=== PATIENT | male | born 1965 | race Caucasian/White ===

== ENCOUNTER 2018-04-02 09:14 | Inpatient (IN) ==
--- NOTE | 2018-04-01 22:10 | Discharge Summary ---
<Sandip Matson - Last Filed: 04/02/18 09:36> Orders not resulted at time of discharge: Pending orders 04/02/18 00:01 XR knee RT limited 1-2V [XR] Routine H/H [Hemoglobin and Hematocrit] [HEME] Routine 04/02/18 09:20 US anesthesia pain block [US] Routine Date of Encounter: 04/02/18 - Discharge Diagnosis (1) Arthritis of knee, right Priority: Primary Status: Acute (2) DVT prophylaxis Priority: Secondary Status: Chronic (3) Hyperglycemia Priority: Secondary Status: Chronic (4) Status post total knee replacement, right Priority: Primary Status: Acute (5) Alcohol abuse Priority: Secondary Status: Chronic (6) Hepatitis C Priority: Secondary Status: Chronic Qualifiers: Viral hepatitis chronicity: chronic Hepatic coma status: without hepatic coma Qualified Code(s): B18.2 - Chronic viral hepatitis C (7) Hypertension Priority: Secondary Status: Chronic Qualifiers: Hypertension type: essential hypertension Qualified Code(s): I10 - Essential (primary) hypertension (8) Liver cirrhosis Priority: Secondary Status: Chronic Qualifiers: Hepatic cirrhosis type: unspecified hepatic cirrhosis Ascites presence: unspecified Qualified Code(s): K74.60 - Unspecified cirrhosis of liver (9) Tobacco abuse Priority: Secondary Status: Chronic - Hospital Course Hospital course: Mr. Cardenas is a 52 year old male - Time Spent with Patient Total time spent providing and/or coordinating discharge services: - Discharge Medications Home Medications: Alendronate Sodium [Fosamax] 70 mg PO QWEEK 04/02/18 [History] Diclofenac Sodium [Voltaren] 100 gm TP QID 04/02/18 [History] Ergocalciferol (VITAMIN D2) [Vitamin D2] 50,000 unit PO QMONTH 04/02/18 [History ] Ergocalciferol (VITAMIN D2) [Vitamin D] 400 unit PO DAILY 04/02/18 [History] Gabapentin [Neurontin] 300 mg PO TID 04/02/18 [History] Hydroxychloroquine [Plaquenuil] 200 mg PO BID 04/02/18 [History] Insulin Glargine,Hum.rec.anlog [Basaglar Kwikpen U-100] 20 unit SQ DAILY [History] Sulfasalazine [Azulfidine] 1,000 mg PO BID 04/02/18 [History] Triamcinolone Acet 0.1% CRM [Kenalog] 453.6 gm TP BID 04/02/18 [History] hydroCHLOROthiazide [Hydrochlorothiazide] 12.5 mg PO DAILY 04/02/18 [History] Allergies/Adverse Reactions: 3 Allergy/AdvReac Type Severity Reaction Status Date / Time No Known Allergies Allergy Verified 07/14/15 10:55 Primary care physician: Renita Dillard CNP - Patient Status Disposition: Home, Self-Care Condition: Good - Discharge Instructions Instructions: Total Knee Replacement (DC) Follow Up With: Renita Dillard CNP [Primary Care Provider] - Kym Juan PAC [Physician Set And Exhibit Designer] - 04/10/18 2:30 am ([place]) <Kaylee Gamino - Last Filed: 04/03/18 16:45> Date of Encounter: 04/03/18 Time of Encounter: 16:37 - Discharge Diagnosis (1) Arthritis of knee, right Priority: Primary Status: Acute (2) Status post total knee replacement, right Priority: Primary Status: Acute (3) Hepatitis C Priority: Secondary Status: Chronic Qualifiers: Viral hepatitis chronicity: chronic Hepatic coma status: without hepatic coma Qualified Code(s): B18.2 - Chronic viral hepatitis C (4) Hypertension Priority: Secondary Status: Chronic Qualifiers: Hypertension type: essential hypertension Qualified Code(s): I10 - Essential (primary) hypertension (5) Alcohol abuse Priority: Secondary Status: Chronic (6) Liver cirrhosis Priority: Secondary Status: Chronic Qualifiers: Hepatic cirrhosis type: unspecified hepatic cirrhosis Ascites presence: unspecified Qualified Code(s): K74.60 - Unspecified cirrhosis of liver (7) Tobacco abuse Priority: Secondary Status: Chronic - Hospital Course Hospital course: Mr. Cardenas is a 52 year old male POD#1 - s/p Right TKR 04/02 Patient seen at bedside, without complaints. A&O x 3 6 additional makenna placed to distal incision due to bleeding. Afebrile, vital signs stable. Vital Signs Temp Pulse Resp BP Pulse Ox 04/03/18 14:02 97.8 F 77 20 126/73 99 04/03/18 12:21 97.7 F 78 18 121/78 97 04/03/18 07:30 97.8 F 68 16 126/78 99 09/13/18 03:19 97.4 F L 62 18 128/65 98 04/02/18 22:18 98.4 F 73 18 153/93 98 04/02/18 18:54 98.4 F 77 16 131/91 97 Intake and Output 04/03/18 04/03/18 04/03/18 07:59 15:59 23:59 Intake Total 100 / 100 1000 / 1000 Output Total 650 / 650 450 / 450 Balance -550 / -550 550 / 550 Intake: IV Fluids 100 / 100 1000 / 1000 Lactated Ringers 1,000 ML @ 75 1000 / 1000 mls/hr IVC .[id number] [facility] Rx#: [id number] Ancef 2,000 MG In 0.9 % Sodium 100 / 100 Chloride 100 ML @ 200 mls/hr IVPB Q8HR [facility] Rx#:[id number] Output: Urine 650 / 650 450 / 450 Other: Blood Glucose* 141 111 Labs reviewed. H/H - stable, asymptomatic Abnormal Labs 04/02/18 04/02/18 04/03/18 13:55 18:56 00:45 Hgb 12.7 L 11.1 L D Hct 37.2 L 32.7 L Sodium Glucose POC Glucose 305 H 04/03/18 04/03/18 04/03/18 00:45 07:26 11:25 Hgb Hct Sodium 133 L Glucose 194 H POC Glucose 141 H 111 H Pain control: adequate Participating in PT. All questions and concerns addressed. Educated on use of incentive spirometer. Encouraged ambulation and proper hydration. Patient educated on post-operative restrictions and post-operative care. Assessment and plan: Continue with postoperative care Discharge plan: Home, discharge today. - Time Spent with Patient Total time spent providing and/or coordinating discharge services: Date of admission: 04/03 Primary care physician: Renita Dillard CNP Anticipated date of discharge: 04/03/18 - Patient Status Functional capacity at discharge: uses cane/walker Overall status at discharge: patient is progressing back to baseline - Diet and Activity Activity: as per physical therapy
--- NOTE | 2018-04-02 09:35 | History & Physical Report ---
Date of Encounter: 04/02/18 Time of Encounter: 09:34 24 Hour HP Update - Instructions Instructions: If the History and Physical is less than 30 days old and was completed prior to A.M. admission and or procedure and has NOT been updated on calendar day of procedure please complete this update prior to performing procedure. - Update Patient reports changes in Medical Condition: No Changes in examination, assessment, or condition: No Changes in Medication: No Preop tests/diagnostics Reviewed: Yes Surgery Remains Indicated: Yes Consent for Planned Operative Procedure(s) Verified: Yes - Pre-Operative Checklist Preoperative Checklist Indicated: No Prophylactic Antibiotic Ordered: Yes Is VTE Prophylaxis Indicated?: Yes
[2018-04-02] MEDS ORDERED: Ondansetron 4 MG/2 ML VIAL ONE (09:44)
--- NOTE | 2018-04-02 09:45 | Anesthesia Evaluation PreOp ---
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 04/01/18 [Rx] 3 Allergy/AdvReac Type Severity Reaction Status Date / Time No Known Allergies Allergy Verified 07/14/15 10:55 - Meds/Allergy Pre-op Review Medications Reviewed: Yes Allergies Reviewed: Yes Beta Blockers on Current Med List: No Anesthesia Results - Labs Laboratory Last Values WBC 8.0 K/mcL (4.3-11.1) 03/26/18 12:10 RBC 4.17 M/mcL (4.19-5.50) L 03/26/18 12:10 Hgb 14.4 g/dL (12.9-16.9) 03/26/18 12:10 Hct 43.4 % (37.5-50.1) 03/26/18 12:10 MCV 104.1 fL (83.0-100.0) H 03/26/18 12:10 MCH 34.5 pg (28.0-33.3) H 03/26/18 12:10 MCHC 33.2 g/dL (31.6-35.5) 03/26/18 12:10 RDW 12.4 % (11.5-14.5) 03/26/18 12:10 Plt Count 146 K/mcL (140-400) 03/26/18 12:10 MPV 11.1 fL (9.4-12.4) 03/26/18 12:10 Immature Gran % 0.2 % (0-4) 03/26/18 12:10 Seg Neutrophils % 62.9 % 03/26/18 12:10 Lymphocytes % 19.3 % 03/26/18 12:10 Monocytes % 14.1 % 03/26/18 12:10 Eosinophils % 3.0 % 03/26/18 12:10 Basophils % 0.5 % 03/26/18 12:10 Neutrophils # 5.0 K/mcL (1.6-8.9) 03/26/18 12:10 Lymphocytes # 1.6 K/mcL (0.6-4.6) 03/26/18 12:10 Monocytes # 1.1 K/mcL (0.0-1.3) 03/26/18 12:10 Eosinophils # 0.2 K/mcL (0.0-0.6) 03/26/18 12:10 Basophils # 0.0 K/mcL (0.0-0.2) 03/26/18 12:10 PT 12.1 Seconds (9.4-12.1) 03/26/18 12:10 INR 1.1 03/26/18 12:10 APTT 34.7 Seconds (26.0-36.0) 03/26/18 12:10 Sodium 134 mEq/L (136-145) L 03/26/18 12:10 Potassium 4.9 mEq/L (3.5-5.1) 03/26/18 12:10 Chloride 101 mEq/L (98-107) 03/26/18 12:10 Carbon Dioxide 26 mEq/L (23-29) 03/26/18 12:10 BUN 12 mg/dL (6-20) 03/26/18 12:10 Creatinine 0.75 mg/dL (0.70-1.30) 03/26/18 12:10 Est GFR ( Amer) > 60 (> 60) 03/26/18 12:10 Est GFR (Non-Af Amer) > 60 (> 60) 03/26/18 12:10 BUN/Creatinine Ratio 16 (6-26) 03/26/18 12:10 Est Mean Plasma Glucose 100 mg/dl 03/26/18 12:10 Hemoglobin A1c 5.1 % (-5.6) 03/26/18 12:10 Anesthesia Exam O2 Sat Height 1.75 m Height 1.75 m Weight 80.739 kg Weight 80.739 kg O2 Sat by Pulse Oximetry 94 Vital Signs/O2 Sat/Glucose, Most Recent Temp Pulse Resp BP Pulse Ox 98.2 F 83 18 142/95 94 04/02/18 09:56 04/02/18 09:56 04/02/18 09:56 04/02/18 09:56 04/02/18 09:56 Blood Glucose* 91 NPO (# of Hours): 8 - HEENT Mallampati: I Teeth: Normal Oral Opening: Greater than 3 - Cardiac Rhythm: Regular - Pulmonary Breath Sounds: bilateral Clear Respiratory Effort: Symmetrical Anesthesia Assess/Plan ASA Score: 3 Modified Barry Scale for Level of Consciousness: Cooperative, oriented, and tranquil Anesthetic Plan: General, Regional Monitoring Plan: Standard Monitors Recovery Plan: PACU Anes Supervising Prov Stmt: CHART AND MEDICATIONS REVIEWED. [facility] MED LIST NOT UPDATED Surgical History Right shoulder scope x2 09/09/09 Right total shoulder replacement 02/27/10 colonoscopy with excision of papillas 2012 Right revision Total Shoulder Replacement Reverse 09/12/15 gall bladder removed jun 2016 Right shoulder arthroscopy,lysis of adhesisons 01-04-17 Patient informed and consented. Risks, benefits, and alternatives discussed. Patient wishes to proceed.
[2018-04-02] MEDS ORDERED: Lidocaine -MPF 2% 2 ML VIAL ONE (09:57)
[2018-04-02] MEDS ORDERED: *HR* Midazolam HCl 2 MG/2 ML VIAL ONE ×2 (09:57→12:07)
[2018-04-02] MEDS ORDERED: *HR* FentaNYL (PF) 100 MCG/2 ML VIAL ONE ×2 (09:57→12:46)
[2018-04-02] MEDS ORDERED: *HR* Propofol 200 MG/20 ML VIAL IVP ONE ×2 (09:58→12:09)
[2018-04-02] MEDS ORDERED: Dexamethasone 4 MG/ML VIAL ONE ×2 (09:59→12:12)
[2018-04-02] MEDS ORDERED: Pregabalin 75 MG CAPSULE PO ONE (10:00)
[2018-04-02] MEDS ORDERED: *HR* Methadone 10 MG TABLET PO ONE (10:00)
[2018-04-02] MEDS ORDERED: Hydrocortisone Sodium Succ 100 MG/2 ML VIAL IVP ONE (10:01)
[2018-04-02] MEDS ORDERED: CeFAZolin Syr 2,000MG/20 ML 2,000 MG/20 ML SYRINGE IVPB ONE (10:02)
[2018-04-02] MEDS ORDERED: Albuterol 2.5 MG/3 ML NEBULIZER IH ONE (10:02)
[2018-04-02] MEDS ORDERED: Albuterol 2.5 MG/3 ML NEBULIZER ONE (10:07)
[2018-04-02] MEDS ORDERED: Ringers Solution, Lactated 1,000 ML IVC SCH (10:15)
[2018-04-02] MEDS ORDERED: ROPIVACAINE HCL/PF 0.5% 30 ML VIAL ONE (10:54)
[2018-04-02] MEDS ORDERED: Bupivacaine/Clonidine Syringe 1 EACH SYRINGE ONE (10:54)
[2018-04-02] MEDS ORDERED: Ethanol\\Acetic Acid\\Na Ace\\Ben 1,000 ML IRRIG.SOLN IR ONE (11:04)
[2018-04-02] MEDS ORDERED: Acetaminophen IV 1,000 MG/100 ML INFUS..BTL ONE (11:06)
[2018-04-02] MEDS ORDERED: KETAMINE HCL 50 MG/ML SYRINGE IV ONE (11:07)
--- NOTE | 2018-04-02 11:28 | Anesthesia Procedures ---
Date of Encounter: 04/02/18 Time of Encounter: Procedures: Anesthesia - Nerve Block Procedure Date: 04/02/18 Time: Pre-op Diagnosis: Right Knee Osteoarthritis Surgical Procedure: Right Robotic Total Knee Arthroplasty Checklist: Correct Patient Identifier, Correct procedure, History checked Correct side: Right Blood Thinner: No Monitor Applied: BP, Pulse Oximetry Supplemental Oxygen via Nasal Cannula (L/min): 2 Sedation: Versed (mg): 2 Sedation: Fentanyl (mcg): 100 Indication: Post Op Analgesia Pre-op Neuro Deficits: No Block Type: Femoral (30 ml 0.5% ropivacaine and 4mg decadron), Other (I-Pack 20ml .025% bupivacaine with clonidine 20mcg/ml) Catheter placed: No Sterile Technique: Yes Ultrasound used: Yes Anatomy identified: Yes Visual spread of Local: Yes Neuro Stimulation: No Blood on Needle Aspiration: No Smooth Injection of Local: Yes Pain with Injection of Local: No Prep: Chlorhexadine Needle: 22 x 50 mm Stimuplex, 21 x 100 mm Stimuplex (50mm with femerol block; 100mm with I-PACK) Local: 0.25% Bupivicaine w/Clonidine 20 mcg/cc, Ropivacaine (0.5% 30ml (femerol block)) Number of Attempts: 1 Complications: None/effective block Vitals: Please see Holding area RN notes for vital signs
[2018-04-02] MEDS ORDERED: Ketorolac 30 MG/ML VIAL ONE (12:58)
--- NOTE | 2018-04-02 13:02 | Orthopedic Operative Note ---
Date of procedure: 04/02/18 Pre-op diagnosis: Right knee arthritis Procedure: Procedure: Right robotic-assisted Total knee replacement Estimated blood loss: 200 cc Hardware: Metal and polyethylene replacement. [place] Femur: 6 Tibia: 6 TS insert: 11 Patella: 39 Exam Under anesthesia: 4 degrees hyperextension 5 degree varus as calculated by the robot full flexion and no instability Procedural Notes: Grade 4 arthritic changes patellofemoral joint, medial compartment Operative procedure: The patient was brought to the operating room and placed on the operating room table. After general anesthesia was administered the operative knee was examined. Findings were noted in the exam under anesthesia. The operative extremity was prepped and draped in sterile surgical fashion. The patient received IV antibiotics prior to skin incision. A standard midline incision was made centered over the patella. The incision was made through the skin and subcutaneous tissue. A medial parapatellar tendon approach was performed. Care was taken to preserve tissue along the medial aspect of the patella. And to protect the patella tendon. The deep MCL was released off the medial tibia. The infra patella fat pad was excised. The patella was everted and cut was made at the level of the insertion of the quadriceps and patella tendon. The patella was sized to a 39 the guide was seated and the lug holes are drilled. Knee was brought into flexion. Patient noted to have rate 4 arthritic changes medial compartment and patellofemoral joint. Steinmann pins were placed in the tibia and the femur for the tibial and femoral arrays respectively. Checkpoints were also placed in the tibia and the femur for calculation purposes. The knee including the femur and the tibial registered. Osteophytes , ACL and PCL were excised at this point. Extension and flexion were assessed with a valgus stress components were adjusted on the computer to balance the knee. Femoral cuts were made first with robotic assistance, these included the anterior cut posterior cuts chamfer cuts. Tibial cut was then performed with robotic assistance as well. Bone fragments were removed, as well as the medial and lateral meniscus. The size 6 femoral guide was seated box cut was made lug holes are drilled. The size 6 tibial tray was seated and prepared with the fin cutter. Trial reduction with the 11 TS Yusra revealed extension of 0 degree and 1 degree varus full flexion. No varus valgus instability. Trial reduction revealed excellent patella tracking. All trial components were removed all bony surfaces were irrigated. The Tibia was seated followed by the femur, The Yusra size 11 was seated and secured patella. Patient had similar findings for motion and stability. The knee was closed by the PA. The knee was then irrigated out with 2 L of pulse irrigation. The extensor mechanism was closed with #2 FiberWire suture and #2 PDS suture. The subcutaneous tissue was then irrigated and closed deep with #1 PDS suture superficially with 0 PDS suture and skin was closed with zip tie The patient was then placed in a sterile dressing and a postoperative brace extubated and transferred to recovery room in stable condition. Anesthesia: GETA Surgeon: Sandip Matson Was there an infertility medical assistant present: No Estimated blood loss (cc): 200 Condition: stable Disposition: PACU
[2018-04-02] MEDS: *HR* HYDROmorphone (PF) 1 MG/ML SYRINGE IVP PRN ×2 (13:50→13:55)
[2018-04-02] MEDS ORDERED: *HR* Promethazine 25 MG/ML VIAL IVP PRN (13:59)
[2018-04-02] MEDS ORDERED: *HR* OxyCODONE Immed Rel 5 MG TABLET PO PRN (13:59)
--- NOTE | 2018-04-02 14:11 | Anesthesia Evaluation Post Op ---
Date of Encounter: 04/02/18 Time of Encounter: 14:10 - Vital Signs Vital Signs: Vital Signs/O2 Sat/Glucose, Most Current Temp Pulse Resp BP Pulse Ox 04/02/18 14:02 98.2 F 79 16 147/92 94 04/02/18 13:52 98.2 F 84 16 146/106 94 04/02/18 13:42 98.2 F 71 14 141/89 100 04/02/18 11:51 86 144/92 97 04/02/18 11:37 82 153/98 96 04/02/18 10:53 88 14 141/87 93 04/02/18 10:34 18 142/95 94 - Lungs Lungs: Clear Ascult./Percussion - Airway Airway: Non-obstructed - Cardiovascular Regular Rate - Mental Status Mental Status: Alert & Oriented, Answers Appropriately - Pain Pain Scale: 0 - Nausea Vomiting Nausea Vomiting: Not Present - Hydration Hydration: Ice chips, Has not voided - Discharge PostOp Status: Transfer Patient to floor (denies surgical pain, states pain in right shoulder chronic in nature, medicated)
[2018-04-02 14:19] LABS: Hematocrit 37.2 % (37.5-50.1)
[2018-04-02 14:20] LABS: Hemoglobin 12.7 g/dL (12.9-16.9)
[2018-04-02] MEDS ORDERED: *HR* OxyCODONE/APAP 5/325 TABLET PO PRN (15:33)
[2018-04-02] MEDS ORDERED: Sennosides 8.6 MG TABLET PO PRN (15:33)
[2018-04-02] MEDS ORDERED: Temazepam 15 MG CAPSULE PO PRN (15:33)
[2018-04-02] MEDS ORDERED: MOM Conc 10 ML UD.LIQ PO PRN (15:33)
[2018-04-02] MEDS ORDERED: Naloxone 0.4 MG/ML INJ IVP PRN (15:33)
[2018-04-02] MEDS ORDERED: traMADol 50 MG TABLET PO PRN (15:33)
[2018-04-02] MEDS ORDERED: (Alendronate Sodium [Fosamax] 70 MG) PO SCH (15:33)
[2018-04-02] MEDS ORDERED: Ondansetron 4 MG/2 ML VIAL IVP PRN (15:33)
[2018-04-02] MEDS: *HR* OxyCODONE Immed Rel 5 MG TABLET PO PRN ×2 (15:52→21:17)
[2018-04-02] MEDS ORDERED: *HR* Enoxaparin 30 MG/0.3 ML SYRINGE SQ SCH (18:00)
[2018-04-02] MEDS: Gabapentin 300 MG CAPSULE PO SCH ×2 (18:12→21:17)
[2018-04-02] MEDS: Ibuprofen 800 MG TABLET PO SCH ×2 (18:12→21:18)
[2018-04-02] MEDS: *HR* Enoxaparin 30 MG/0.3 ML SYRINGE SQ SCH (18:18)
[2018-04-02] MEDS: Ringers Solution, Lactated 1,000 ML IVC SCH (18:25)
[2018-04-02] MEDS: sulfaSALAzine 500 MG TABLET PO SCH (21:24)
[2018-04-02] MEDS ORDERED: *HR* Dextrose 50 % in Water (Syg) 50 ML SYRINGE IVP PRN (21:28)
[2018-04-02] MEDS ORDERED: Dextrose Gel 15 GM/37.5 ML TUBE PO PRN ×2 (21:28)
[2018-04-02] MEDS ORDERED: D5% in Water 1,000 ML IVC PRN (21:28)
[2018-04-02] MEDS ORDERED: Insulin DETEMIR 100 UNIT/ML X5UNITS SQ SCH (21:45)
[2018-04-02] MEDS: Insulin LISPRO 300 UNITS/3 ML VIAL SQ SCH (23:08)
[2018-04-02] MEDS: Insulin DETEMIR 100 UNIT/ML X5UNITS SQ SCH (23:10)
[2018-04-02] MEDS: Triamcinolone Acet 0.1% CRM 15 GM TUBE TP SCH (23:11)
[2018-04-02] MEDS: Nicotine 21 MG PATCH.TD24 TD SCH (23:11)
[2018-04-02] MEDS: Permethrin CRM 60 GM TUBE TP SCH (23:12)
[2018-04-03] MEDS: *HR* OxyCODONE Immed Rel 5 MG TABLET PO PRN ×6 (01:24→22:49)
[2018-04-03 01:38] LABS: Hematocrit 32.7 % (37.5-50.1)
[2018-04-03 01:39] LABS: Hemoglobin 11.1 g/dL (12.9-16.9)
[2018-04-03 01:44] LABS: BUN/Creatinine Ratio 16 (6-26); Blood Urea Nitrogen 13 mg/dL (6-20); Calcium 9.4 mg/dL (8.6-10.3); Carbon Dioxide 25 mEq/L (23-29); Chloride 101 mEq/L (98-107); Glucose 194 mg/dL (70-105); Osmolality,Calculated 281 (280-300); Potassium 4.6 mEq/L (3.5-5.1); Sodium 133 mEq/L (136-145); eGFR For Non-African Americans > 60 (> 60)
[2018-04-03] MEDS ORDERED: *HR* LORazepam 2 MG/ML VIAL IVP PRN ×3 (03:20)
[2018-04-03] MEDS: *HR* Enoxaparin 30 MG/0.3 ML SYRINGE SQ SCH ×2 (05:35→18:21)
--- NOTE | 2018-04-03 07:57 | Orthopedics Progress Note ---
Date of Encounter: 04/03/18 Time of Encounter: 07:57 - Assessment and Plan (1) Arthritis of knee, right Current Visit: No Status: Acute (2) DVT prophylaxis Current Visit: No Status: Chronic (3) Hyperglycemia Current Visit: No Status: Chronic (4) Status post total knee replacement, right Current Visit: No Status: Acute (5) Alcohol abuse Current Visit: No Status: Chronic (6) Hepatitis C Current Visit: No Status: Chronic Qualifiers: Viral hepatitis chronicity: chronic Hepatic coma status: without hepatic coma Qualified Code(s): B18.2 - Chronic viral hepatitis C (7) Hypertension Current Visit: No Status: Chronic Qualifiers: Hypertension type: essential hypertension Qualified Code(s): I10 - Essential (primary) hypertension (8) Liver cirrhosis Current Visit: No Status: Chronic Qualifiers: Hepatic cirrhosis type: unspecified hepatic cirrhosis Ascites presence: unspecified Qualified Code(s): K74.60 - Unspecified cirrhosis of liver (9) Tobacco abuse Current Visit: No Status: Chronic Subjective Interval history: Patient was seen this morning doing well without complaints. Afebrile vital signs stable. Operative extremity: Neurovascularly intact Dressing change multiple times for bleeding will have evaluated Calves nontender Assessment and plan: Continue with postoperative care Objective Vital signs: Vital Signs Temp Pulse Resp BP Pulse Ox 04/03/18 07:30 97.8 F 681 6 126/78 99 04/03/18 03:19 97.4 F L 62 18 128/65 98 04/02/18 22:18 98.4 F 73 18 153/93 98 04/02/18 18:54 98.4 F 77 16 131/91 97 04/02/18 15:55 97.7 F 86 18 129/86 94 04/02/18 15:09 138/85 04/02/18 15:01 97.8 F 86 20 141/93 94 04/02/18 14:35 97.7 F 80 14 154/106 95 04/02/18 14:22 98.2 F 80 16 142/97 94 04/02/18 14:12 98.1 F 79 16 148/95 94 04/02/18 14:02 98.2 F 79 16 147/92 94 04/02/18 13:52 98.2 F 84 16 146/106 94 04/02/18 13:42 98.2 F 71 14 141/89 100 09/12/18 11:51 86 144/92 97 04/02/18 11:37 82 153/98 96 04/02/18 10:53 88 14 141/87 93 04/02/18 10:34 18 142/95 94 04/02/18 09:56 98.2 F 83 18 142/95 94 Intake and Output 04/02/18 04/02/18 04/03/18 15:59 23:59 07:59 Intake Total 20 / 20 220 / 220 100 / 100 Output Total 300 / 300 125 / 125 650 / 650 Balance -280 / -280 95 / 95 -550 / -550 Intake: IV Fluids 20 / 20 100 / 100 100 / 100 Ancef Syringe 2,000 MG/20 ML 2, 20 / 20 000 mg In 20 ml @ 200 mls/hr IVPB PREOP ONE Rx#:[id number] Ancef 2,000 MG In 0.9 % Sodium 100 / 100 100 / 100 Chloride 100 ML @ 200 mls/hr IVPB Q8HR [facility] Rx#:[id number] Oral 120 / 120 Output: Urine 100 / 100 125 / 125 650 / 650 Estimated Blood Loss 200 / 200 Other: Meal Dinner Percent of Meal Consumed 100% Weight 80.739 kg Blood Glucose* 91 305 141 - Labs CBC & BMP: 04/03/18 00:45 04/03/18 00:45 Labs: Abnormal lab results Hgb 11.1 g/dL (12.9-16.9) L D 04/03/18 00:45 Hct 32.7 % (37.5-50.1) L 04/03/18 00:45 Sodium 133 mEq/L (136-145) L 04/03/18 00:45 Glucose 194 mg/dL (70-105) H 04/03/18 00:45 POC Glucose 305 mg/dL (70-99) H 04/02/18 18:56 Consult Discharge Plan - Plan Referrals: Renita Dillard, PUBLICITY MANAGER [Primary Care Provider] -
[2018-04-03] MEDS: Nicotine 21 MG PATCH.TD24 TD SCH (09:24)
[2018-04-03] MEDS: hydroCHLOROthiazide 25 MG TABLET PO SCH (09:29)
[2018-04-03] MEDS: Cholecalciferol (D-3) 1,000 UNIT TABLET PO SCH (09:29)
[2018-04-03] MEDS: sulfaSALAzine 500 MG TABLET PO SCH ×2 (09:29→21:43)
[2018-04-03] MEDS: Ibuprofen 800 MG TABLET PO SCH ×3 (09:30→21:43)
[2018-04-03] MEDS: Gabapentin 300 MG CAPSULE PO SCH ×3 (09:30→21:43)
[2018-04-03] MEDS: Insulin LISPRO 300 UNITS/3 ML VIAL SQ SCH ×4 (09:31→21:26)
[2018-04-03] MEDS: Triamcinolone Acet 0.1% CRM 15 GM TUBE TP SCH ×2 (09:32→21:26)
[2018-04-03] MEDS: Permethrin CRM 60 GM TUBE TP SCH (17:53)
[2018-04-03] MEDS: Ringers Solution, Lactated 1,000 ML IVC SCH (21:28)
[2018-04-03] MEDS: Insulin DETEMIR 100 UNIT/ML X5UNITS SQ SCH (21:42)
[2018-04-04 01:25] LABS: Hematocrit 27.1 % (37.5-50.1)
[2018-04-04 01:40] LABS: BUN/Creatinine Ratio 21 (6-26); Blood Urea Nitrogen 18 mg/dL (6-20); Carbon Dioxide 27 mEq/L (23-29); Chloride 102 mEq/L (98-107); Glucose 156 mg/dL (70-105); Osmolality,Calculated 285 (280-300); Sodium 135 mEq/L (136-145); eGFR For Non-African Americans > 60 (> 60)
[2018-04-04] MEDS: *HR* OxyCODONE Immed Rel 5 MG TABLET PO PRN ×3 (03:10→12:56)
[2018-04-04] MEDS: *HR* Enoxaparin 30 MG/0.3 ML SYRINGE SQ SCH (06:49)
[2018-04-04 07:22] VITALS: BP 134/87
[2018-04-04] MEDS: Ringers Solution, Lactated 1,000 ML IVC SCH (07:45)
[2018-04-04] MEDS: Nicotine 21 MG PATCH.TD24 TD SCH (07:45)
[2018-04-04] MEDS: Cholecalciferol (D-3) 1,000 UNIT TABLET PO SCH (07:45)
[2018-04-04] MEDS: Ibuprofen 800 MG TABLET PO SCH (07:45)
[2018-04-04] MEDS: Gabapentin 300 MG CAPSULE PO SCH (07:45)
[2018-04-04] MEDS: hydroCHLOROthiazide 25 MG TABLET PO SCH (07:45)
[2018-04-04] MEDS: Insulin LISPRO 300 UNITS/3 ML VIAL SQ SCH ×2 (08:14→12:13)
--- NOTE | 2018-04-04 09:01 | Orthopedics Progress Note ---
Date of Encounter: 04/04/18 Time of Encounter: 09:01 - Assessment and Plan (1) Arthritis of knee, right Current Visit: No Status: Acute (2) DVT prophylaxis Current Visit: No Status: Chronic (3) Hyperglycemia Current Visit: No Status: Chronic (4) Status post total knee replacement, right Current Visit: No Status: Acute (5) Alcohol abuse Current Visit: No Status: Chronic (6) Hepatitis C Current Visit: No Status: Chronic Qualifiers: Viral hepatitis chronicity: chronic Hepatic coma status: without hepatic coma Qualified Code(s): B18.2 - Chronic viral hepatitis C (7) Hypertension Current Visit: No Status: Chronic Qualifiers: Hypertension type: essential hypertension Qualified Code(s): I10 - Essential (primary) hypertension (8) Liver cirrhosis Current Visit: No Status: Chronic Qualifiers: Hepatic cirrhosis type: unspecified hepatic cirrhosis Ascites presence: unspecified Qualified Code(s): K74.60 - Unspecified cirrhosis of liver (9) Tobacco abuse Current Visit: No Status: Chronic (10) Acute blood loss anemia Current Visit: Yes Status: Acute Subjective Interval history: Patient was seen this morning doing well without complaints. Afebrile vital signs stable. Operative extremity: Neurovascularly intact Dressing change multiple times for bleeding will have evaluated Calves nontender Assessment and plan: Continue with postoperative care Hemoglobin 9.0 plan for discharge today Objective Vital signs: Vital Signs Temp Pulse Resp BP Pulse Ox 04/04/18 06:30 97.8 F 87 16 134/87 98 04/04/18 04:19 97.6 F 82 17 137/83 96 04/03/18 23:44 97.9 F 71 17 124/75 98 04/03/18 21:56 100 04/03/18 21:11 98.0 F 67 18 110/69 100 04/03/18 14:02 97.8 F 77 20 126/73 99 04/03/18 12:21 97.7 F 78 18 121/78 97 Intake and Output 04/03/18 04/04/18 04/04/18 23:59 07:59 15:59 Intake Total 0 / 0 300 / 300 Output Total 0 / 0 600 / 600 Balance 0 / 0 -300 / -300 Intake: Oral 0 / 0 300 / 300 Output: Urine 0 / 0 600 / 600 Other: # Voids 1 Blood Glucose* 181 94 - Labs CBC & BMP: 04/04/18 00:50 04/04/18 00:50 Labs: Abnormal lab results Hgb 9.0 g/dL (12.9-16.9) L D 04/04/18 00:50 Hct 27.1 % (37.5-50.1) L 04/04/18 00:50 Sodium 135 mEq/L (136-145) L 04/04/18 00:50 Glucose 156 mg/dL (70-105) H 04/04/18 00:50 POC Glucose 181 mg/dL (70-99) H 04/03/18 20:02 Consult Discharge Plan - Plan Instructions: Total Knee Replacement (DC) Referrals: Kym Juan PAC [Physician Product Communications Manager] - 04/10/18 2:30 pm ([place]) Renita Dillard, FRUIT TRIMMER [Primary Care Provider] -
[2018-04-04] MEDS: Triamcinolone Acet 0.1% CRM 15 GM TUBE TP SCH (10:44)
[2018-04-04] MEDS ORDERED: Ketorolac 30 MG/ML VIAL IVP PRN (13:56)
== END 2018-04-04 15:12 | disposition home or self-care (01) | DRG 302 ==
LOC: SAMDAY 09:14 → 3NENU 14:57
PROVIDERS: ADMIT Orthopaedic Surgery; ATTEND Orthopaedic Surgery

== ENCOUNTER 2020-04-07 12:53 | Observation (INO) ==
[2020-04-07] MEDS ORDERED: Gabapentin 300 MG CAPSULE PO ONE (13:47)
[2020-04-07] MEDS ORDERED: Celecoxib 200 MG CAPSULE PO ONE (13:47)
[2020-04-07] MEDS ORDERED: Famotidine 20 MG/2 ML VIAL IVP ONE (13:47)
[2020-04-07] MEDS ORDERED: Acetaminophen IV 1,000 MG/100 ML INFUS..BTL IVPB ONE (13:47)
[2020-04-07] MEDS ORDERED: *HR* OxyCODONE ER (12 HR) 10 MG TABLET PO ONE (13:47)
[2020-04-07] MEDS ORDERED: *HR* Promethazine 25 MG/ML VIAL IVP PRN ×2 (13:56→17:50)
[2020-04-07] MEDS ORDERED: *HR* OxyCODONE Immed Rel 5 MG TABLET PO PRN (13:56)
[2020-04-07] MEDS ORDERED: Albuterol 2.5 MG/3 ML NEBULIZER IH PRN (13:56)
[2020-04-07] MEDS ORDERED: *HR* HYDROmorphone PF 0.5 MG/0.5 ML SYRINGE IVP PRN (13:56)
[2020-04-07] MEDS ORDERED: Ondansetron 4 MG/2 ML VIAL IVP ONE (13:56)
[2020-04-07] MEDS ORDERED: CeFAZolin Syr 2,000MG/20 ML 2,000 MG/20 ML SYRINGE IVPB ONE (14:11)
[2020-04-07] MEDS ORDERED: Ringers Solution, Lactated 1,000 ML IVC SCH ×2 (14:15→17:50)
[2020-04-07] MEDS ORDERED: Ropivacaine/PF 0.5% 30 ML VIAL ONE (14:27)
[2020-04-07] MEDS ORDERED: *HR* FentaNYL (PF) 100 MCG/2 ML VIAL ONE (14:28)
[2020-04-07] MEDS ORDERED: *HR* Midazolam HCl 2 MG/2 ML VIAL ONE (14:28)
[2020-04-07] MEDS ORDERED: Dexamethasone 4 MG/ML VIAL ONE ×2 (14:28→14:49)
[2020-04-07] MEDS ORDERED: Ondansetron 4 MG/2 ML VIAL ONE (14:49)
[2020-04-07] MEDS ORDERED: Lidocaine -MPF 2% 2 ML VIAL ONE (14:49)
[2020-04-07] MEDS ORDERED: *HR* Propofol 200 MG/20 ML VIAL IVP ONE (14:49)
[2020-04-07] MEDS ORDERED: Ethanol\\Acetic Acid\\Na Ace\\Ben 1,000 ML IRRIG.SOLN IR ONE (15:10)
[2020-04-07] MEDS ORDERED: Vancomycin 1,000 MG VIAL ONE (15:10)
[2020-04-07] MEDS ORDERED: Total Joint Mixture (50 ml) INTRAART ONE (16:00)
[2020-04-07 17:46] LABS: Hematocrit 34.1 % (37.5-50.1); Hemoglobin 11.5 g/dL (12.9-16.9)
[2020-04-07] MEDS ORDERED: D5% in Water 1,000 ML IVC PRN (17:50)
[2020-04-07] MEDS ORDERED: Naloxone 0.4 MG/ML INJ IVP PRN (17:50)
[2020-04-07] MEDS ORDERED: *HR* Dextrose 50 % in Water (Vial) 50 ML VIAL IVP PRN (17:50)
[2020-04-07] MEDS ORDERED: MOM Conc 10 ML UD.LIQ PO PRN (17:50)
[2020-04-07] MEDS ORDERED: Dextrose Gel 15 GM/37.5 ML TUBE PO PRN ×2 (17:50)
[2020-04-07] MEDS ORDERED: Sennosides 8.6 MG TABLET PO PRN (17:50)
[2020-04-07] MEDS ORDERED: Ondansetron 4 MG/2 ML VIAL IVP PRN (17:50)
[2020-04-07] MEDS: Insulin LISPRO 300 UNITS/3 ML VIAL SQ SCH ×2 (20:04→22:00)
[2020-04-07] MEDS: Ascorbic Acid 500 MG TABLET PO SCH (20:04)
[2020-04-07] MEDS: *HR* OxyCODONE Immed Rel 5 MG TABLET PO PRN (21:09)
[2020-04-07] MEDS: Insulin DETEMIR 100 UNIT/ML X5UNITS SQ SCH (22:01)
[2020-04-07] MEDS: HYDROcodone BIT/Homatropine 5 MG TABLET PO PRN (23:29)
[2020-04-08] MEDS: CeFAZolin 2 GM/120 ML BAG IVPB SCH ×2 (00:57→09:51)
[2020-04-08] MEDS: *HR* OxyCODONE Immed Rel 5 MG TABLET PO PRN ×5 (01:07→19:38)
[2020-04-08 02:49] LABS: Hematocrit 32.9 % (37.5-50.1); Hemoglobin 11.1 g/dL (12.9-16.9); Immature Granulocytes % 0.2 % (0-4); Lymphocytes # 0.3 K/mcL (0.6-4.6); Lymphocytes % 4.1 %; Mean Corpuscular HGB Conc 33.7 g/dL (31.6-35.5); Mean Corpuscular Volume 103.8 fL (83.0-100.0); Monocytes # 0.3 K/mcL (0.0-1.3); Monocytes % 3.5 %; Neutrophils # 7.4 K/mcL (1.6-8.9); Platelet Count 139 K/mcL (140-400); Red Blood Count 3.17 M/mcL (4.19-5.50); Red Cell Distribution Width 13.1 % (11.5-14.5); Segmented Neutrophils % 92.2 %
[2020-04-08 03:13] LABS: BUN/Creatinine Ratio 13 (6-26); Blood Urea Nitrogen 11 mg/dL (6-20); Calcium 9.1 mg/dL (8.6-10.3); Carbon Dioxide 22 mEq/L (23-29); Chloride 99 mEq/L (98-107); Glucose 149 mg/dL (70-105); Osmolality,Calculated 270 (280-300); Potassium 4.7 mEq/L (3.5-5.1); Sodium 129 mEq/L (136-145); eGFR For African Americans > 60 (> 60); eGFR For Non-African Americans > 60 (> 60)
[2020-04-08] MEDS: HYDROcodone BIT/Homatropine 5 MG TABLET PO PRN ×4 (03:51→21:37)
[2020-04-08] MEDS: Cholecalciferol (D-3) 1,000 UNIT (25MCG) TABLET PO SCH (08:36)
[2020-04-08] MEDS: Ascorbic Acid 500 MG TABLET PO SCH ×2 (08:37→17:01)
[2020-04-08] MEDS: hydroCHLOROthiazide 25 MG TABLET PO SCH (08:37)
[2020-04-08] MEDS: Multivit/Ca/Min/Fe/FA 1 TAB TABLET PO SCH (08:37)
[2020-04-08] MEDS: (Tofacitinib Citrate [Xeljanz Xr] 11 MG) PO SCH (08:38)
[2020-04-08] MEDS: Insulin LISPRO 300 UNITS/3 ML VIAL SQ SCH ×4 (08:40→22:30)
[2020-04-08] MEDS: Aspirin Enteric Coated 81 MG Tablet PO SCH (14:32)
[2020-04-08] MEDS: Insulin DETEMIR 100 UNIT/ML X5UNITS SQ SCH (22:27)
[2020-04-09] MEDS: *HR* OxyCODONE Immed Rel 5 MG TABLET PO PRN ×4 (00:01→14:40)
[2020-04-09] MEDS: HYDROcodone BIT/Homatropine 5 MG TABLET PO PRN ×2 (02:18→12:27)
[2020-04-09] MEDS: Insulin LISPRO 300 UNITS/3 ML VIAL SQ SCH ×2 (08:49→12:27)
[2020-04-09] MEDS: Aspirin Enteric Coated 81 MG Tablet PO SCH (09:22)
[2020-04-09] MEDS: (Tofacitinib Citrate [Xeljanz Xr] 11 MG) PO SCH (09:22)
[2020-04-09] MEDS: Ascorbic Acid 500 MG TABLET PO SCH (09:22)
[2020-04-09] MEDS: Multivit/Ca/Min/Fe/FA 1 TAB TABLET PO SCH (09:22)
[2020-04-09] MEDS: Cholecalciferol (D-3) 1,000 UNIT (25MCG) TABLET PO SCH (09:22)
[2020-04-09] MEDS: hydroCHLOROthiazide 25 MG TABLET PO SCH (09:22)
[2020-04-09 10:39] LABS: Basophils % 0.1 %; Eosinophils # 0.1 K/mcL (0.0-0.6); Eosinophils % 1.1 %; Hematocrit 27.2 % (37.5-50.1); Immature Granulocytes % 0.4 % (0-4); Lymphocytes # 1.9 K/mcL (0.6-4.6); Lymphocytes % 22.7 %; Mean Corpuscular Volume 106.3 fL (83.0-100.0); Mean Platelet Volume 10.3 fL (9.4-12.4); Monocytes # 0.8 K/mcL (0.0-1.3); Monocytes % 10.2 %; Neutrophils # 5.4 K/mcL (1.6-8.9); Platelet Count 122 K/mcL (140-400); Red Blood Count 2.56 M/mcL (4.19-5.50); Red Cell Distribution Width 13.3 % (11.5-14.5); Segmented Neutrophils % 65.5 %; White Blood Count 8.2 K/mcL (4.3-11.1)
[2020-04-09 10:41] LABS: Hemoglobin 8.7 g/dL (12.9-16.9)
[2020-04-09 11:32] LABS: BUN/Creatinine Ratio 20 (6-26); Blood Urea Nitrogen 20 mg/dL (6-20); Calcium 8.8 mg/dL (8.6-10.3); Carbon Dioxide 23 mEq/L (23-29); Chloride 98 mEq/L (98-107); Glucose 199 mg/dL (70-105); Osmolality,Calculated 280 (280-300); Potassium 3.5 mEq/L (3.5-5.1); Sodium 131 mEq/L (136-145); eGFR For African Americans > 60 (> 60); eGFR For Non-African Americans > 60 (> 60)
[2020-04-09 11:57] VITALS: BP 112/88
== END 2020-04-09 15:30 | disposition home or self-care (01) ==
LOC: 3NENU 12:53 → SAMDAY 12:53 → 3NENU 17:39
PROVIDERS: ADMIT Orthopaedic Surgery; ATTEND Orthopaedic Surgery

== ENCOUNTER 2020-08-15 23:52 | Inpatient (IN) ==
[2020-08-16] MEDS ORDERED: 0.9 % Sodium Chloride 1,000 ML ONE (00:04)
[2020-08-16] MEDS ORDERED: Naloxone 0.4 MG/ML INJ IVP PRN (02:24)
[2020-08-16] MEDS ORDERED: Ondansetron 4 MG/2 ML VIAL IVP PRN (02:24)
[2020-08-16] MEDS ORDERED: *HR* Dextrose 50 % in Water (Vial) 50 ML VIAL IVP PRN (02:44)
[2020-08-16] MEDS ORDERED: D5% in Water 1,000 ML IVC PRN (02:44)
[2020-08-16] MEDS ORDERED: Dextrose Gel 15 GM/37.5 ML TUBE PO PRN ×2 (02:44)
[2020-08-16] MEDS ORDERED: *HR* LORazepam 2 MG/ML VIAL IVP ONE (02:44)
[2020-08-16] MEDS: Nicotine 21 MG PATCH.TD24 TD SCH (02:56)
[2020-08-16] MEDS ORDERED: *HR* LORazepam 2 MG/ML VIAL IVP PRN ×3 (04:22)
[2020-08-16 05:46] LABS: BUN/Creatinine Ratio 21 (6-26); Blood Urea Nitrogen 12 mg/dL (6-20); Calcium 9.1 mg/dL (8.6-10.3); Carbon Dioxide 22 mEq/L (23-29); Chloride 86 mEq/L (98-107); Glucose 306 mg/dL (70-105); Osmolality,Calculated 265 (280-300); Potassium 5.2 mEq/L (3.5-5.1); Sodium 122 mEq/L (136-145); eGFR For African Americans > 60 (> 60); eGFR For Non-African Americans > 60 (> 60)
[2020-08-16] MEDS ORDERED: Insulin LISPRO 300 UNITS/3 ML VIAL SUBQ SCH (06:00)
[2020-08-16] MEDS ORDERED: 0.9 % Sodium Chloride 1,000 ML IVC SCH (06:00)
[2020-08-16 07:33] LABS: Basophils % 0.1 %; Hematocrit 37.4 % (37.5-50.1); Hemoglobin 12.7 g/dL (12.9-16.9); Immature Granulocytes % 0.7 % (0-4); Lymphocytes # 0.6 K/mcL (0.6-4.6); Lymphocytes % 5.7 %; Mean Corpuscular Hemoglobin 32.9 pg (28.0-33.3); Mean Corpuscular Volume 96.9 fL (83.0-100.0); Mean Platelet Volume 10.4 fL (9.4-12.4); Monocytes # 0.7 K/mcL (0.0-1.3); Monocytes % 6.9 %; Neutrophils # 8.6 K/mcL (1.6-8.9); Platelet Count 207 K/mcL (140-400); Red Blood Count 3.86 M/mcL (4.19-5.50); Red Cell Distribution Width 13.2 % (11.5-14.5); Segmented Neutrophils % 86.6 %; White Blood Count 9.9 K/mcL (4.3-11.1)
[2020-08-16 07:45] LABS: Alanine Aminotransferase 26 Units/L (7-52); Albumin 4.3 g/dL (3.5-5.7); Albumin/Globulin Ratio 1.2 (1.1-2.2); Alkaline Phosphatase 81 Units/L (34-104); Aspartate Amino Transferase 28 Units/L (13-39); BUN/Creatinine Ratio 18 (6-26); Bilirubin,Total 0.7 mg/dL (0.3-1.0); Blood Urea Nitrogen 12 mg/dL (6-20); Calcium 9.5 mg/dL (8.6-10.3); Carbon Dioxide 22 mEq/L (23-29); Chloride 85 mEq/L (98-107); Globulin 3.5 g/dL (2.4-3.5); Glucose 300 mg/dL (70-105); Osmolality,Calculated 267 (280-300); Sodium 123 mEq/L (136-145); Total Protein 7.8 g/dL (6.4-8.9); eGFR For African Americans > 60 (> 60); eGFR For Non-African Americans > 60 (> 60)
[2020-08-16] MEDS ORDERED: Insulin DETEMIR 100 UNIT/ML X5UNITS SUBQ ONE (10:00)
[2020-08-16] MEDS: Thiamine (B-1) 200 MG in 0.9 % Sodium Chloride 50 ML IVPB SCH (10:43)
[2020-08-16] MEDS: 0.9 % Sodium Chloride 1,000 ML IVC SCH ×2 (10:45→18:38)
[2020-08-16 11:14] LABS: BUN/Creatinine Ratio 18 (6-26); Blood Urea Nitrogen 12 mg/dL (6-20); Calcium 9.5 mg/dL (8.6-10.3); Carbon Dioxide 24 mEq/L (23-29); Chloride 88 mEq/L (98-107); Glucose 234 mg/dL (70-105); Osmolality,Calculated 269 (280-300); Potassium 4.5 mEq/L (3.5-5.1); Sodium 126 mEq/L (136-145); eGFR For African Americans > 60 (> 60); eGFR For Non-African Americans > 60 (> 60)
[2020-08-16] MEDS: Pantoprazole 40 MG VIAL IVP SCH (14:03)
[2020-08-16] MEDS: Insulin LISPRO 300 UNITS/3 ML VIAL SUBQ SCH ×4 (14:14→23:12)
[2020-08-16] MEDS: Insulin DETEMIR 100 UNIT/ML X5UNITS SUBQ SCH (19:46)
[2020-08-16 21:18] LABS: BUN/Creatinine Ratio 21 (6-26); Blood Urea Nitrogen 15 mg/dL (6-20); Calcium 9.4 mg/dL (8.6-10.3); Carbon Dioxide 28 mEq/L (23-29); Chloride 93 mEq/L (98-107); Glucose 142 mg/dL (70-105); Osmolality,Calculated 273 (280-300); Potassium 4.1 mEq/L (3.5-5.1); Sodium 130 mEq/L (136-145); eGFR For African Americans > 60 (> 60); eGFR For Non-African Americans > 60 (> 60)
[2020-08-16] MEDS ORDERED: D5% in Water 1,000 ML IVC SCH (22:15)
[2020-08-17 01:09] LABS: Bacteria,Urine Few per hpf (None-Few); Bilirubin,Urine Negative (Negative); Blood,Urine Trace (Negative); Clarity,Urine Clear (Clear); Color,Urine Yellow (Yellow); Glucose,Urine (UA) >=1000 mg/dL (Normal); Ketones,Urine 40 mg/dL (Negative); Leukocyte Esterase,Urine Negative (Negative); Mucus,Urine Few per lpf (None-Few); Nitrite,Urine Negative (Negative); Protein,Urine Trace mg/dL (Neg-Trace); Specific Gravity,Urine 1.029 (1.010-1.025); Squamous Epithelial Cell,Urine Few per hpf (None-Few); Urobilinogen,Urine Normal (Normal)
[2020-08-17] MEDS: Insulin LISPRO 300 UNITS/3 ML VIAL SUBQ SCH ×5 (04:06→23:34)
[2020-08-17 06:58] LABS: BUN/Creatinine Ratio 24 (6-26); Blood Urea Nitrogen 16 mg/dL (6-20); Calcium 9.4 mg/dL (8.6-10.3); Carbon Dioxide 29 mEq/L (23-29); Chloride 93 mEq/L (98-107); Glucose 142 mg/dL (70-105); Osmolality,Calculated 274 (280-300); Potassium 3.5 mEq/L (3.5-5.1); Sodium 130 mEq/L (136-145); eGFR For African Americans > 60 (> 60); eGFR For Non-African Americans > 60 (> 60)
[2020-08-17] MEDS: Nicotine 21 MG PATCH.TD24 TD SCH (08:29)
[2020-08-17] MEDS: Insulin DETEMIR 100 UNIT/ML X5UNITS SUBQ SCH ×2 (08:30→21:49)
[2020-08-17] MEDS: Thiamine (B-1) 200 MG in 0.9 % Sodium Chloride 50 ML IVPB SCH (08:30)
[2020-08-17] MEDS: Pantoprazole 40 MG VIAL IVP SCH (11:38)
[2020-08-17] MEDS ORDERED: E-Z-PAQUE (BARIUM SULF) SUSP 1 BOTTLE PO ONE (12:35)
[2020-08-17] MEDS ORDERED: E-Z-HD (BARIUM SULF) SUSPENSION PO ONE (12:35)
[2020-08-17 12:48] LABS: Basophils % 0.1 %; Hemoglobin 12.2 g/dL (12.9-16.9); Immature Granulocytes % 0.3 % (0-4); Lymphocytes # 0.9 K/mcL (0.6-4.6); Lymphocytes % 7.6 %; Mean Corpuscular Hemoglobin 32.4 pg (28.0-33.3); Mean Corpuscular Volume 98.4 fL (83.0-100.0); Mean Platelet Volume 10.2 fL (9.4-12.4); Monocytes # 1.8 K/mcL (0.0-1.3); Monocytes % 15.8 %; Neutrophils # 8.7 K/mcL (1.6-8.9); Platelet Count 203 K/mcL (140-400); Red Blood Count 3.76 M/mcL (4.19-5.50); Segmented Neutrophils % 76.2 %; White Blood Count 11.4 K/mcL (4.3-11.1)
[2020-08-17] MEDS ORDERED: Ondansetron 4 MG/2 ML VIAL IVP PRN (14:58)
[2020-08-17] MEDS ORDERED: *HR* LORazepam 2 MG/ML VIAL IVP PRN ×3 (14:58)
[2020-08-17] MEDS ORDERED: Dextrose Gel 15 GM/37.5 ML TUBE PO PRN ×2 (14:58)
[2020-08-17] MEDS ORDERED: *HR* Dextrose 50 % in Water (Vial) 50 ML VIAL IVP PRN (14:58)
[2020-08-17] MEDS ORDERED: Naloxone 0.4 MG/ML INJ IVP PRN (14:58)
[2020-08-17 16:22] LABS: BUN/Creatinine Ratio 22 (6-26); Blood Urea Nitrogen 17 mg/dL (6-20); Calcium 9.5 mg/dL (8.6-10.3); Carbon Dioxide 29 mEq/L (23-29); Chloride 92 mEq/L (98-107); Glucose 185 mg/dL (70-105); Osmolality,Calculated 274 (280-300); Potassium 3.7 mEq/L (3.5-5.1); Sodium 129 mEq/L (136-145); eGFR For African Americans > 60 (> 60); eGFR For Non-African Americans > 60 (> 60)
[2020-08-17] MEDS: *HR* Heparin 5,000 UNIT/ML VIAL SQ SCH (17:38)
[2020-08-18 02:37] LABS: Basophils % 0.2 %; Eosinophils % 0.1 %; Hematocrit 35.6 % (37.5-50.1); Hemoglobin 11.7 g/dL (12.9-16.9); Immature Granulocytes % 0.5 % (0-4); Lymphocytes # 0.7 K/mcL (0.6-4.6); Lymphocytes % 6.4 %; Mean Corpuscular HGB Conc 32.9 g/dL (31.6-35.5); Mean Corpuscular Hemoglobin 32.8 pg (28.0-33.3); Mean Corpuscular Volume 99.7 fL (83.0-100.0); Mean Platelet Volume 9.6 fL (9.4-12.4); Monocytes # 1.3 K/mcL (0.0-1.3); Monocytes % 11.9 %; Neutrophils # 8.5 K/mcL (1.6-8.9); Platelet Count 174 K/mcL (140-400); Red Blood Count 3.57 M/mcL (4.19-5.50); Red Cell Distribution Width 13.9 % (11.5-14.5); Segmented Neutrophils % 80.9 %; White Blood Count 10.6 K/mcL (4.3-11.1)
[2020-08-18 02:38] LABS: VBG Ionized Calcium 1.15 mmol/L (1.15-1.35)
[2020-08-18 02:57] LABS: Alanine Aminotransferase 19 Units/L (7-52); Albumin 3.7 g/dL (3.5-5.7); Albumin/Globulin Ratio 1.2 (1.1-2.2); Alkaline Phosphatase 69 Units/L (34-104); Aspartate Amino Transferase 20 Units/L (13-39); BUN/Creatinine Ratio 25 (6-26); Bilirubin,Total 0.7 mg/dL (0.3-1.0); Blood Urea Nitrogen 18 mg/dL (6-20); Calcium 9.3 mg/dL (8.6-10.3); Carbon Dioxide 28 mEq/L (23-29); Chloride 93 mEq/L (98-107); Globulin 3.2 g/dL (2.4-3.5); Glucose 225 mg/dL (70-105); Magnesium 1.8 mg/dL (1.6-2.6); Osmolality,Calculated 277 (280-300); Phosphorous 3.7 mg/dL (2.7-4.5); Potassium 3.9 mEq/L (3.5-5.1); Sodium 129 mEq/L (136-145); Total Protein 6.9 g/dL (6.4-8.9); eGFR For African Americans > 60 (> 60); eGFR For Non-African Americans > 60 (> 60)
[2020-08-18] MEDS: *HR* Heparin 5,000 UNIT/ML VIAL SQ SCH ×2 (06:52→17:01)
[2020-08-18] MEDS: Insulin LISPRO 300 UNITS/3 ML VIAL SUBQ SCH ×5 (08:52→22:44)
[2020-08-18] MEDS ORDERED: Thiamine (B-1) 200 MG in 0.9 % Sodium Chloride 50 ML IVPB SCH (09:00)
[2020-08-18] MEDS: Nicotine 21 MG PATCH.TD24 TD SCH (09:46)
[2020-08-18] MEDS: Insulin DETEMIR 100 UNIT/ML X5UNITS SUBQ SCH ×2 (09:46→22:40)
[2020-08-18] MEDS: Pantoprazole 40 MG VIAL IVP SCH (11:08)
[2020-08-18] MEDS ORDERED: OLANZAPINE 5 MG PO SCH (15:45)
[2020-08-19 02:20] LABS: Basophils % 0.2 %; Eosinophils % 0.1 %; Hematocrit 35.2 % (37.5-50.1); Hemoglobin 11.5 g/dL (12.9-16.9); Immature Granulocytes % 0.3 % (0-4); Lymphocytes # 0.9 K/mcL (0.6-4.6); Lymphocytes % 7.4 %; Mean Corpuscular HGB Conc 32.7 g/dL (31.6-35.5); Mean Corpuscular Hemoglobin 32.4 pg (28.0-33.3); Mean Corpuscular Volume 99.2 fL (83.0-100.0); Mean Platelet Volume 10.1 fL (9.4-12.4); Monocytes # 1.3 K/mcL (0.0-1.3); Monocytes % 11.1 %; Neutrophils # 9.7 K/mcL (1.6-8.9); Platelet Count 160 K/mcL (140-400); Red Blood Count 3.55 M/mcL (4.19-5.50); Red Cell Distribution Width 14.1 % (11.5-14.5); Segmented Neutrophils % 80.9 %; White Blood Count 11.9 K/mcL (4.3-11.1)
[2020-08-19 02:40] LABS: Alanine Aminotransferase 18 Units/L (7-52); Albumin 3.8 g/dL (3.5-5.7); Albumin/Globulin Ratio 1.2 (1.1-2.2); Alkaline Phosphatase 79 Units/L (34-104); Aspartate Amino Transferase 21 Units/L (13-39); BUN/Creatinine Ratio 28 (6-26); Bilirubin,Total 0.5 mg/dL (0.3-1.0); Blood Urea Nitrogen 19 mg/dL (6-20); Calcium 9.6 mg/dL (8.6-10.3); Carbon Dioxide 26 mEq/L (23-29); Chloride 96 mEq/L (98-107); Globulin 3.3 g/dL (2.4-3.5); Glucose 192 mg/dL (70-105); Osmolality,Calculated 283 (280-300); Potassium 3.6 mEq/L (3.5-5.1); Sodium 133 mEq/L (136-145); Total Protein 7.1 g/dL (6.4-8.9); eGFR For African Americans > 60 (> 60); eGFR For Non-African Americans > 60 (> 60)
[2020-08-19] MEDS: *HR* Heparin 5,000 UNIT/ML VIAL SQ SCH ×2 (05:36→16:58)
[2020-08-19] MEDS: Insulin LISPRO 300 UNITS/3 ML VIAL SUBQ SCH ×6 (07:31→20:33)
[2020-08-19] MEDS: hydroCHLOROthiazide 25 MG TABLET PO SCH (07:41)
[2020-08-19] MEDS: Nicotine 21 MG PATCH.TD24 TD SCH (07:42)
[2020-08-19] MEDS: Insulin DETEMIR 100 UNIT/ML X5UNITS SUBQ SCH ×2 (07:42→20:31)
[2020-08-19] MEDS: Pantoprazole 40 MG VIAL IVP SCH (12:10)
[2020-08-20] MEDS: Insulin LISPRO 300 UNITS/3 ML VIAL SUBQ SCH ×6 (00:45→21:03)
[2020-08-20 03:19] LABS: Basophils % 0.2 %; Eosinophils % 0.4 %; Hemoglobin 10.8 g/dL (12.9-16.9); Mean Platelet Volume 10.4 fL (9.4-12.4)
[2020-08-20 03:21] LABS: Hematocrit 33.3 % (37.5-50.1); Immature Granulocytes % 0.4 % (0-4); Lymphocytes # 0.9 K/mcL (0.6-4.6); Lymphocytes % 8.8 %; Mean Corpuscular HGB Conc 32.4 g/dL (31.6-35.5); Mean Corpuscular Hemoglobin 32.2 pg (28.0-33.3); Mean Corpuscular Volume 99.4 fL (83.0-100.0); Monocytes # 1.3 K/mcL (0.0-1.3); Monocytes % 12.5 %; Neutrophils # 8.1 K/mcL (1.6-8.9); Platelet Count 139 K/mcL (140-400); Red Blood Count 3.35 M/mcL (4.19-5.50); Segmented Neutrophils % 77.7 %; White Blood Count 10.4 K/mcL (4.3-11.1)
[2020-08-20 03:32] LABS: Alanine Aminotransferase 18 Units/L (7-52); Albumin 3.5 g/dL (3.5-5.7); Albumin/Globulin Ratio 1.1 (1.1-2.2); Alkaline Phosphatase 74 Units/L (34-104); Aspartate Amino Transferase 22 Units/L (13-39); BUN/Creatinine Ratio 22 (6-26); Bilirubin,Total 0.5 mg/dL (0.3-1.0); Blood Urea Nitrogen 15 mg/dL (6-20); Calcium 9.3 mg/dL (8.6-10.3); Carbon Dioxide 26 mEq/L (23-29); Chloride 95 mEq/L (98-107); Globulin 3.1 g/dL (2.4-3.5); Glucose 243 mg/dL (70-105); Osmolality,Calculated 279 (280-300); Potassium 3.6 mEq/L (3.5-5.1); Sodium 130 mEq/L (136-145); Total Protein 6.6 g/dL (6.4-8.9); eGFR For African Americans > 60 (> 60); eGFR For Non-African Americans > 60 (> 60)
[2020-08-20] MEDS: *HR* Heparin 5,000 UNIT/ML VIAL SQ SCH ×2 (05:03→17:36)
[2020-08-20] MEDS: hydroCHLOROthiazide 25 MG TABLET PO SCH (09:41)
[2020-08-20] MEDS: Nicotine 21 MG PATCH.TD24 TD SCH (09:46)
[2020-08-20] MEDS: Insulin DETEMIR 100 UNIT/ML X5UNITS SUBQ SCH ×2 (09:46→21:02)
[2020-08-20 11:27] LABS: Adenovirus Not Detected (Not Detect); Bordetella Pertussis Not Detected (Not Detect); Chlamydophila pneumoniae Not Detected (Not Detect); Coronavirus 229E Not Detected (Not Detect); Coronavirus HKU1 Not Detected (Not Detect); Coronavirus NL63 Not Detected (Not Detect); Coronavirus OC43 Not Detected (Not Detect); Human Metapneumovirus Not Detected (Not Detect); Human Rhinovirus/Enterovirus DETECTED (Not Detect); Influenza A Subtype 2009 H1 Not Detected (Not Detect); Influenza B Not Detected (Not Detect); Mycoplasma pneumoniae Not Detected (Not Detect); Parainfluenza Virus 1 Not Detected (Not Detect); Parainfluenza Virus 2 Not Detected (Not Detect); Parainfluenza Virus 3 Not Detected (Not Detect); Parainfluenza Virus 4 Not Detected (Not Detect); Respiratory Syncytial Virus Not Detected (Not Detect); SARS-CoV-2 Not Detected (Not Detect)
[2020-08-20] MEDS: Pantoprazole 40 MG VIAL IVP SCH (12:21)
[2020-08-20] MEDS: Acetaminophen 325 MG TABLET PO PRN (21:02)
[2020-08-21] MEDS: Insulin LISPRO 300 UNITS/3 ML VIAL SUBQ SCH ×6 (00:40→20:28)
[2020-08-21 01:15] LABS: Basophils % 0.1 %; Lymphocytes % 12.2 %; Monocytes % 12.5 %; Red Cell Distribution Width 13.8 % (11.5-14.5); Segmented Neutrophils % 74.3 %
[2020-08-21 01:17] LABS: Eosinophils # 0.1 K/mcL (0.0-0.6); Eosinophils % 0.6 %; Hematocrit 32.4 % (37.5-50.1); Hemoglobin 10.7 g/dL (12.9-16.9); Immature Granulocytes % 0.3 % (0-4); Immature Platelets 3.9 % (1.1-6.1); Mean Corpuscular Hemoglobin 32.7 pg (28.0-33.3); Mean Corpuscular Volume 99.1 fL (83.0-100.0); Mean Platelet Volume 9.9 fL (9.4-12.4); Neutrophils # 5.9 K/mcL (1.6-8.9); Platelet Count 142 K/mcL (140-400); Red Blood Count 3.27 M/mcL (4.19-5.50); White Blood Count 7.9 K/mcL (4.3-11.1)
[2020-08-21 01:37] LABS: Alanine Aminotransferase 29 Units/L (7-52); Albumin 3.5 g/dL (3.5-5.7); Albumin/Globulin Ratio 1.1 (1.1-2.2); Alkaline Phosphatase 89 Units/L (34-104); Aspartate Amino Transferase 41 Units/L (13-39); BUN/Creatinine Ratio 22 (6-26); Bilirubin,Total 0.7 mg/dL (0.3-1.0); Blood Urea Nitrogen 15 mg/dL (6-20); Calcium 9.4 mg/dL (8.6-10.3); Carbon Dioxide 28 mEq/L (23-29); Chloride 96 mEq/L (98-107); Globulin 3.2 g/dL (2.4-3.5); Glucose 93 mg/dL (70-105); Osmolality,Calculated 277 (280-300); Potassium 3.3 mEq/L (3.5-5.1); Sodium 133 mEq/L (136-145); Total Protein 6.7 g/dL (6.4-8.9); eGFR For African Americans > 60 (> 60); eGFR For Non-African Americans > 60 (> 60)
[2020-08-21] MEDS: *HR* Heparin 5,000 UNIT/ML VIAL SQ SCH ×2 (04:54→17:07)
[2020-08-21] MEDS: hydroCHLOROthiazide 25 MG TABLET PO SCH (07:13)
[2020-08-21] MEDS: Nicotine 21 MG PATCH.TD24 TD SCH (07:13)
[2020-08-21] MEDS: Insulin DETEMIR 100 UNIT/ML X5UNITS SUBQ SCH ×2 (07:13→20:29)
[2020-08-21] MEDS ORDERED: Potassium Chloride Elixir 20 MEQ/15 ML UDC PO ONE (07:30)
[2020-08-21 07:52] LABS: Magnesium 1.7 mg/dL (1.6-2.6)
[2020-08-21] MEDS: Pantoprazole 40 MG VIAL IVP SCH (10:46)
[2020-08-21] MEDS: Acetaminophen 325 MG TABLET PO PRN ×2 (10:47→18:11)
[2020-08-22] MEDS: Insulin LISPRO 300 UNITS/3 ML VIAL SUBQ SCH ×6 (00:35→19:48)
[2020-08-22 03:46] LABS: Basophils % 0.3 %; Eosinophils # 0.1 K/mcL (0.0-0.6); Eosinophils % 0.9 %; Hematocrit 30.3 % (37.5-50.1); Hemoglobin 9.9 g/dL (12.9-16.9); Immature Granulocytes % 0.3 % (0-4); Lymphocytes # 0.8 K/mcL (0.6-4.6); Lymphocytes % 10.8 %; Mean Corpuscular HGB Conc 32.7 g/dL (31.6-35.5); Mean Corpuscular Hemoglobin 32.6 pg (28.0-33.3); Mean Corpuscular Volume 99.7 fL (83.0-100.0); Mean Platelet Volume 9.5 fL (9.4-12.4); Monocytes # 1.1 K/mcL (0.0-1.3); Monocytes % 16.1 %; Platelet Count 150 K/mcL (140-400); Red Blood Count 3.04 M/mcL (4.19-5.50); Red Cell Distribution Width 13.8 % (11.5-14.5); Segmented Neutrophils % 71.6 %
[2020-08-22 04:02] LABS: BUN/Creatinine Ratio 19 (6-26); Blood Urea Nitrogen 13 mg/dL (6-20); Calcium 8.7 mg/dL (8.6-10.3); Carbon Dioxide 31 mEq/L (23-29); Chloride 96 mEq/L (98-107); Glucose 144 mg/dL (70-105); Osmolality,Calculated 281 (280-300); Potassium 3.7 mEq/L (3.5-5.1); Sodium 134 mEq/L (136-145); eGFR For African Americans > 60 (> 60); eGFR For Non-African Americans > 60 (> 60)
[2020-08-22] MEDS: *HR* Heparin 5,000 UNIT/ML VIAL SQ SCH ×2 (05:31→17:10)
[2020-08-22] MEDS: hydroCHLOROthiazide 25 MG TABLET PO SCH (08:05)
[2020-08-22] MEDS: Insulin DETEMIR 100 UNIT/ML X5UNITS SUBQ SCH ×2 (08:05→19:47)
[2020-08-22] MEDS: Nicotine 21 MG PATCH.TD24 TD SCH (08:06)
[2020-08-22] MEDS ORDERED: D5% in Water 1,000 ML IVC PRN (09:33)
[2020-08-22] MEDS: Acetaminophen 325 MG TABLET PO PRN (19:59)
[2020-08-23] MEDS: Insulin LISPRO 300 UNITS/3 ML VIAL SUBQ SCH ×5 (00:33→15:59)
[2020-08-23 02:59] LABS: Basophils % 0.3 %; Eosinophils # 0.1 K/mcL (0.0-0.6); Eosinophils % 0.8 %; Hematocrit 32.2 % (37.5-50.1); Hemoglobin 10.5 g/dL (12.9-16.9); Immature Granulocytes % 0.2 % (0-4); Lymphocytes # 0.9 K/mcL (0.6-4.6); Lymphocytes % 14.7 %; Mean Corpuscular HGB Conc 32.6 g/dL (31.6-35.5); Mean Corpuscular Hemoglobin 32.5 pg (28.0-33.3); Mean Corpuscular Volume 99.7 fL (83.0-100.0); Mean Platelet Volume 9.7 fL (9.4-12.4); Monocytes # 1.2 K/mcL (0.0-1.3); Monocytes % 18.1 %; Neutrophils # 4.2 K/mcL (1.6-8.9); Platelet Count 189 K/mcL (140-400); Red Blood Count 3.23 M/mcL (4.19-5.50); Red Cell Distribution Width 13.8 % (11.5-14.5); Segmented Neutrophils % 65.9 %; White Blood Count 6.4 K/mcL (4.3-11.1)
[2020-08-23 03:18] LABS: BUN/Creatinine Ratio 17 (6-26); Blood Urea Nitrogen 12 mg/dL (6-20); Calcium 9.4 mg/dL (8.6-10.3); Carbon Dioxide 32 mEq/L (23-29); Chloride 95 mEq/L (98-107); Glucose 85 mg/dL (70-105); Osmolality,Calculated 277 (280-300); Potassium 3.4 mEq/L (3.5-5.1); Sodium 134 mEq/L (136-145); eGFR For African Americans > 60 (> 60); eGFR For Non-African Americans > 60 (> 60)
[2020-08-23] MEDS: *HR* Heparin 5,000 UNIT/ML VIAL SQ SCH (04:58)
[2020-08-23 07:38] LABS: Magnesium 1.7 mg/dL (1.6-2.6)
[2020-08-23] MEDS: hydroCHLOROthiazide 25 MG TABLET PO SCH (08:45)
[2020-08-23] MEDS: Nicotine 21 MG PATCH.TD24 TD SCH (08:47)
[2020-08-23] MEDS: Insulin DETEMIR 100 UNIT/ML X5UNITS SUBQ SCH (09:42)
[2020-08-23] MEDS ORDERED: Sennosides/Docusate Sodium TABLET PO PRN (11:59)
[2020-08-23 15:54] VITALS: BP 128/82
== END 2020-08-23 18:56 | disposition home health service (06) | DRG 121 ==
LOC: ICNU 23:52 → EMEROOARM 23:52 → ICNU 08-16 01:43 → SUATTDRO 08-16 04:19 → 2NNU 08-17 09:59 → 2ANU 08-20 19:15
PROVIDERS: ADMIT Internal Medicine; ATTEND Family Medicine

== ENCOUNTER 2020-09-24 17:53 | Inpatient (IN) ==
[2020-09-24] MEDS ORDERED: *HR* LORazepam 2 MG/ML VIAL IVP PRN ×3 (21:59)
[2020-09-24] MEDS ORDERED: Thiamine (B-1) 200 MG in 0.9 % Sodium Chloride 50 ML IVPB SCH (22:00)
[2020-09-24] MEDS ORDERED: Naloxone 0.4 MG/ML INJ IVP PRN (22:08)
[2020-09-24] MEDS ORDERED: Ondansetron 4 MG/2 ML VIAL IVP PRN (22:08)
[2020-09-24] MEDS ORDERED: Potassium Chloride Elixir 20 MEQ/15 ML UDC PO ONE (22:12)
[2020-09-24] MEDS ORDERED: Dextrose Gel 15 GM/37.5 ML TUBE PO PRN ×2 (22:13)
[2020-09-24] MEDS ORDERED: D5% in Water 1,000 ML IVC PRN (22:13)
[2020-09-24] MEDS ORDERED: *HR* Dextrose 50 % in Water (Vial) 50 ML VIAL IVP PRN (22:13)
[2020-09-24 22:47] LABS: Calcium 8.5 mg/dL (8.6-10.3); Magnesium 2.8 mg/dL (1.6-2.6)
[2020-09-24] MEDS: 0.9 % Sodium Chloride 1,000 ML IVC SCH (23:09)
[2020-09-24] MEDS: Nystatin SUSP 5 ML UD.LIQ BC SCH (23:09)
[2020-09-24] MEDS: Insulin LISPRO 300 UNITS/3 ML VIAL SUBQ SCH (23:25)
[2020-09-25] MEDS ORDERED: Potassium Chloride 40 MEQ, Lidocaine 1% 2 ML in 0.9 % Sodium Chloride 500 ML IVPB ONE (00:11)
[2020-09-25] MEDS: *HR* HYDROcodone/Acet 5/325 mg TABLET PO PRN ×3 (02:43→17:12)
[2020-09-25] MEDS: 0.9 % Sodium Chloride 1,000 ML IVC SCH ×3 (05:15→20:21)
[2020-09-25] MEDS: Piperacillin/Tazobactam 3.375 GM in 0.9 % Sodium Chloride Mini Bag 100 ML IVPB SCH ×2 (05:16→17:13)
[2020-09-25] MEDS: *HR* Heparin 5,000 UNIT/ML VIAL SQ SCH ×3 (05:16→19:43)
[2020-09-25] MEDS: Insulin LISPRO 300 UNITS/3 ML VIAL SUBQ SCH ×3 (06:23→16:57)
[2020-09-25 06:52] LABS: Bilirubin,Urine Negative (Negative); Blood,Urine Negative (Negative); Clarity,Urine Clear (Clear); Color,Urine Light-Yellow (Yellow); Glucose,Urine (UA) >=1000 mg/dL (Normal); Ketones,Urine Negative (Negative); Leukocyte Esterase,Urine Negative (Negative); Nitrite,Urine Negative (Negative); Protein,Urine Trace mg/dL (Neg-Trace); RBC,Urine 0-3 per hpf (0-3); Specific Gravity,Urine 1.014 (1.010-1.025); Squamous Epithelial Cell,Urine Few per hpf (None-Few); Urobilinogen,Urine Normal (Normal)
[2020-09-25] MEDS: Folic Acid 1 MG TABLET PO SCH (07:55)
[2020-09-25] MEDS: Nystatin SUSP 5 ML UD.LIQ BC SCH ×4 (07:56→19:42)
[2020-09-25 08:19] LABS: Basophils % 0.5 %; Eosinophils % 0.2 %; Hematocrit 28.1 % (37.5-50.1); Hemoglobin 9.4 g/dL (12.9-16.9); Immature Granulocytes % 0.5 % (0-4); Lymphocytes # 0.3 K/mcL (0.6-4.6); Lymphocytes % 6.8 %; Mean Corpuscular HGB Conc 33.5 g/dL (31.6-35.5); Mean Corpuscular Hemoglobin 32.8 pg (28.0-33.3); Mean Corpuscular Volume 97.9 fL (83.0-100.0); Mean Platelet Volume 9.8 fL (9.4-12.4); Monocytes # 0.7 K/mcL (0.0-1.3); Neutrophils # 3.2 K/mcL (1.6-8.9); Platelet Count 163 K/mcL (140-400); Red Blood Count 2.87 M/mcL (4.19-5.50); White Blood Count 4.3 K/mcL (4.3-11.1)
[2020-09-25 08:37] LABS: Albumin 3.1 g/dL (3.5-5.7); Albumin/Globulin Ratio 1.1 (1.1-2.2); Bilirubin,Total 0.3 mg/dL (0.3-1.0); Calcium 8.4 mg/dL (8.6-10.3); Globulin 2.8 g/dL (2.4-3.5); Magnesium 2.3 mg/dL (1.6-2.6); Phosphorous 2.5 mg/dL (2.7-4.5); Potassium 3.6 mEq/L (3.5-5.1); Total Protein 5.9 g/dL (6.4-8.9)
[2020-09-25 09:47] LABS: Protein/Creatinine Ratio,Urine 0.7 mg/mg (0.00-0.20); Sodium, Urine 19.8 mEq/L
[2020-09-25] MEDS: Thiamine (B-1) 200 MG in 0.9 % Sodium Chloride 50 ML IVPB SCH (11:08)
[2020-09-26] MEDS: Insulin LISPRO 300 UNITS/3 ML VIAL SUBQ SCH ×4 (01:52→18:32)
[2020-09-26] MEDS: 0.9 % Sodium Chloride 1,000 ML IVC SCH (03:04)
[2020-09-26] MEDS: *HR* Heparin 5,000 UNIT/ML VIAL SQ SCH ×3 (05:07→23:05)
[2020-09-26] MEDS: Piperacillin/Tazobactam 3.375 GM in 0.9 % Sodium Chloride Mini Bag 100 ML IVPB SCH ×3 (05:07→23:04)
[2020-09-26 05:53] LABS: Hematocrit 25.9 % (37.5-50.1); Hemoglobin 8.6 g/dL (12.9-16.9); Lymphocytes # 0.3 K/mcL (0.6-4.6); Mean Corpuscular HGB Conc 33.2 g/dL (31.6-35.5); Mean Corpuscular Hemoglobin 32.3 pg (28.0-33.3); Mean Corpuscular Volume 97.4 fL (83.0-100.0); Mean Platelet Volume 9.9 fL (9.4-12.4); Platelet Count 125 K/mcL (140-400); Red Blood Count 2.66 M/mcL (4.19-5.50); Red Cell Distribution Width 14.4 % (11.5-14.5); White Blood Count 4.4 K/mcL (4.3-11.1)
[2020-09-26 06:10] LABS: Calcium 8.1 mg/dL (8.6-10.3); Phosphorous 2.7 mg/dL (2.7-4.5); Potassium 2.9 mEq/L (3.5-5.1); Uric Acid 10.2 mg/dL (2.3-7.6)
[2020-09-26 06:14] LABS: Anisocytosis 1+ (Not Present); Monocytes # 0.3 K/mcL (0.0-1.3); Neutrophils # 3.9 K/mcL (1.6-8.9); Platelet Estimate Normal (Normal); Reactive Lymphocytes Present (Not Present)
[2020-09-26 07:05] LABS: Hepatitis B Surface Antigen Nonreactive (Nonreactive)
[2020-09-26 07:34] LABS: Hepatitis B Core IgM Nonreactive (Nonreactive)
[2020-09-26 07:36] LABS: Hepatitis A Antibody IgM Nonreactive (Nonreactive)
[2020-09-26] MEDS ORDERED: Potassium Chloride 20 MEQ, Lidocaine 1% 2 ML in 0.9 % Sodium Chloride 250 ML IVPB ONE (07:42)
[2020-09-26] MEDS: *HR* HYDROcodone/Acet 5/325 mg TABLET PO PRN (09:12)
[2020-09-26] MEDS: Folic Acid 1 MG TABLET PO SCH (09:15)
[2020-09-26] MEDS: Nystatin SUSP 5 ML UD.LIQ BC SCH ×4 (09:15→20:18)
[2020-09-26 09:33] LABS: Hepatitis C Virus Antibody Reactive (Nonreactive)
[2020-09-26] MEDS: Thiamine (B-1) 200 MG in 0.9 % Sodium Chloride 50 ML IVPB SCH (13:44)
[2020-09-26] MEDS: allopurinoL 100 MG TABLET PO SCH (15:56)
[2020-09-26] MEDS ORDERED: OLANZapine 5 MG TAB.RAPDIS PO PRN (19:40)
[2020-09-26] MEDS ORDERED: GuaiFENesin Liq 200 MG/10 ML UDC PO PRN (19:41)
[2020-09-26] MEDS: Gabapentin 300 MG CAPSULE PO SCH (20:15)
[2020-09-26] MEDS: *HR* OxyCODONE Immed Rel 5 MG TABLET PO PRN ×2 (20:16→23:05)
[2020-09-26] MEDS ORDERED: Potassium Chloride 40 MEQ, Lidocaine 1% 2 ML in 0.9 % Sodium Chloride 500 ML IVPB ONE (20:56)
[2020-09-27] MEDS: Insulin LISPRO 300 UNITS/3 ML VIAL SUBQ SCH ×5 (00:55→20:10)
[2020-09-27] MEDS: *HR* OxyCODONE Immed Rel 5 MG TABLET PO PRN ×3 (02:27→20:09)
[2020-09-27 02:42] LABS: Basophils % 0.2 %; Hematocrit 29.1 % (37.5-50.1); Hemoglobin 9.5 g/dL (12.9-16.9); Immature Granulocytes % 0.4 % (0-4); Lymphocytes # 0.6 K/mcL (0.6-4.6); Lymphocytes % 10.1 %; Mean Corpuscular HGB Conc 32.6 g/dL (31.6-35.5); Mean Corpuscular Hemoglobin 32.2 pg (28.0-33.3); Mean Corpuscular Volume 98.6 fL (83.0-100.0); Mean Platelet Volume 10.2 fL (9.4-12.4); Monocytes # 0.8 K/mcL (0.0-1.3); Monocytes % 14.6 %; Neutrophils # 4.1 K/mcL (1.6-8.9); Platelet Count 114 K/mcL (140-400); Red Blood Count 2.95 M/mcL (4.19-5.50); Red Cell Distribution Width 14.7 % (11.5-14.5); Segmented Neutrophils % 74.7 %; White Blood Count 5.5 K/mcL (4.3-11.1)
[2020-09-27 03:04] LABS: Calcium 8.3 mg/dL (8.6-10.3)
[2020-09-27] MEDS: 0.9 % Sodium Chloride 1,000 ML IVC SCH ×2 (03:26→15:10)
[2020-09-27] MEDS: *HR* Heparin 5,000 UNIT/ML VIAL SQ SCH ×3 (04:05→20:09)
[2020-09-27] MEDS ORDERED: Chloraseptic Spray 177 ML BOTTLE MM PRN (07:39)
[2020-09-27] MEDS ORDERED: (Tofacitinib Citrate [Xeljanz Xr] 11 MG Tab.Er.24h) PO SCH (09:00)
[2020-09-27] MEDS: Nystatin SUSP 5 ML UD.LIQ BC SCH ×4 (09:03→20:10)
[2020-09-27] MEDS: Gabapentin 300 MG CAPSULE PO SCH ×3 (09:03→20:09)
[2020-09-27] MEDS: Cholecalciferol (D-3) 1,000 UNIT (25MCG) TABLET PO SCH (09:03)
[2020-09-27] MEDS: Folic Acid 1 MG TABLET PO SCH (09:04)
[2020-09-27] MEDS: Piperacillin/Tazobactam 3.375 GM in 0.9 % Sodium Chloride Mini Bag 100 ML IVPB SCH ×3 (09:04→23:12)
[2020-09-27] MEDS: allopurinoL 100 MG TABLET PO SCH (09:04)
[2020-09-27] MEDS ORDERED: Saliva Stimulant 44.3ml BOTTLE PO PRN (16:53)
[2020-09-27] MEDS ORDERED: 0.9 % Sodium Chloride 1,000 ML IVC SCH (16:56)
[2020-09-28] MEDS: Saliva Stimulant 44.3ml BOTTLE PO SCH ×7 (02:51→21:58)
[2020-09-28 05:43] LABS: Basophils % 0.2 %; Mean Corpuscular HGB Conc 32.8 g/dL (31.6-35.5); Red Blood Count 2.46 M/mcL (4.19-5.50)
[2020-09-28 05:45] LABS: Hemoglobin 8.2 g/dL (12.9-16.9); Immature Granulocytes % 0.2 % (0-4); Immature Platelets 2.1 % (1.1-6.1); Lymphocytes # 0.5 K/mcL (0.6-4.6); Lymphocytes % 11.8 %; Mean Corpuscular Hemoglobin 33.3 pg (28.0-33.3); Mean Corpuscular Volume 101.6 fL (83.0-100.0); Mean Platelet Volume 9.9 fL (9.4-12.4); Monocytes # 0.9 K/mcL (0.0-1.3); Monocytes % 21.1 %; Neutrophils # 2.9 K/mcL (1.6-8.9); Red Cell Distribution Width 14.8 % (11.5-14.5); Segmented Neutrophils % 66.7 %; White Blood Count 4.3 K/mcL (4.3-11.1)
[2020-09-28] MEDS: *HR* Heparin 5,000 UNIT/ML VIAL SQ SCH (05:46)
[2020-09-28 06:01] LABS: Calcium 7.8 mg/dL (8.6-10.3); Potassium 3.2 mEq/L (3.5-5.1)
[2020-09-28 06:06] LABS: Platelet Count 83 K/mcL (140-400); Platelet Estimate Slight Decrease (Normal)
[2020-09-28] MEDS: allopurinoL 100 MG TABLET PO SCH (08:35)
[2020-09-28] MEDS: Gabapentin 300 MG CAPSULE PO SCH ×3 (08:35→20:11)
[2020-09-28] MEDS: Nystatin SUSP 5 ML UD.LIQ BC SCH ×4 (08:35→20:11)
[2020-09-28] MEDS: Folic Acid 1 MG TABLET PO SCH (08:35)
[2020-09-28] MEDS: Nicotine 21 MG PATCH.TD24 TD SCH (08:36)
[2020-09-28] MEDS: Piperacillin/Tazobactam 3.375 GM in 0.9 % Sodium Chloride Mini Bag 100 ML IVPB SCH (08:36)
[2020-09-28] MEDS: Cholecalciferol (D-3) 1,000 UNIT (25MCG) TABLET PO SCH (08:36)
[2020-09-28] MEDS: Insulin LISPRO 300 UNITS/3 ML VIAL SUBQ SCH ×4 (08:37→20:13)
[2020-09-28] MEDS: *HR* OxyCODONE Immed Rel 5 MG TABLET PO PRN ×4 (08:59→20:56)
[2020-09-28] MEDS: Ringers Solution, Lactated 1,000 ML IVC SCH ×2 (08:59→23:28)
[2020-09-28] MEDS ORDERED: E-Z-PAQUE (BARIUM SULF) SUSP 1 BOTTLE PO ONE (09:56)
[2020-09-28] MEDS ORDERED: E-Z-HD (BARIUM SULF) SUSPENSION PO ONE (09:56)
[2020-09-28] MEDS ORDERED: Barium Sulfate 1 TAB TABLET PO ONE (10:07)
[2020-09-28] MEDS: Cefepime HCl 2,000 MG in Water for inj. (sterile) 20 ML IVP SCH (17:15)
[2020-09-28] MEDS: MetroNIDAZOLE 500 MG/100 ML 500 MG/100 ML BAG IVPB SCH ×2 (17:15→23:28)
[2020-09-29] MEDS: Saliva Stimulant 44.3ml BOTTLE PO SCH ×6 (02:21→22:30)
[2020-09-29 03:43] LABS: Eosinophils % 0.2 %; Hemoglobin 9.9 g/dL (12.9-16.9); Immature Granulocytes % 0.4 % (0-4); Immature Platelets 2.9 % (1.1-6.1); Lymphocytes # 0.7 K/mcL (0.6-4.6); Lymphocytes % 12.2 %; Mean Platelet Volume 9.9 fL (9.4-12.4); Monocytes # 1.3 K/mcL (0.0-1.3); Monocytes % 23.6 %; Neutrophils # 3.4 K/mcL (1.6-8.9); Red Cell Distribution Width 14.9 % (11.5-14.5); Segmented Neutrophils % 63.6 %; White Blood Count 5.3 K/mcL (4.3-11.1)
[2020-09-29 03:44] LABS: Platelet Count 94 K/mcL (140-400)
[2020-09-29 04:05] LABS: Albumin 3.5 g/dL (3.5-5.7); Bilirubin,Direct 0.1 mg/dL (0.0-0.2); Bilirubin,Indirect 0.3 mg/dL (0.0-1.0); Bilirubin,Total 0.4 mg/dL (0.3-1.0); Calcium 8.6 mg/dL (8.6-10.3); Globulin 3.6 g/dL (2.4-3.5); Magnesium 1.2 mg/dL (1.6-2.6); Phosphorous 3.2 mg/dL (2.7-4.5); Potassium 2.9 mEq/L (3.5-5.1); Total Protein 7.1 g/dL (6.4-8.9)
[2020-09-29 04:12] LABS: Anisocytosis 1+ (Not Present); Platelet Estimate Slight Decrease (Normal)
[2020-09-29 04:25] LABS: Folate 16.2 ng/mL (3.0-16.0)
[2020-09-29 04:29] LABS: Vitamin B12 > 1500 pg/mL (250-1100)
[2020-09-29] MEDS: Cefepime HCl 2,000 MG in Water for inj. (sterile) 20 ML IVP SCH ×2 (05:18→18:50)
[2020-09-29] MEDS: *HR* OxyCODONE Immed Rel 5 MG TABLET PO PRN ×6 (05:18→22:16)
[2020-09-29] MEDS: Folic Acid 1 MG TABLET PO SCH (07:45)
[2020-09-29] MEDS: Cholecalciferol (D-3) 1,000 UNIT (25MCG) TABLET PO SCH (07:45)
[2020-09-29] MEDS: allopurinoL 100 MG TABLET PO SCH (07:45)
[2020-09-29] MEDS: Nystatin SUSP 5 ML UD.LIQ BC SCH ×4 (07:46→20:32)
[2020-09-29] MEDS: Nicotine 21 MG PATCH.TD24 TD SCH (07:46)
[2020-09-29] MEDS: Insulin LISPRO 300 UNITS/3 ML VIAL SUBQ SCH ×4 (07:46→20:44)
[2020-09-29] MEDS: Gabapentin 300 MG CAPSULE PO SCH ×3 (07:46→20:34)
[2020-09-29] MEDS: MetroNIDAZOLE 500 MG/100 ML 500 MG/100 ML BAG IVPB SCH ×2 (09:50→18:51)
[2020-09-29] MEDS: Ringers Solution, Lactated 1,000 ML IVC SCH (10:57)
[2020-09-29] MEDS ORDERED: Potassium Chloride 40 MEQ, Lidocaine 1% 2 ML in 0.9 % Sodium Chloride 500 ML IVPB ONE (11:37)
[2020-09-29] MEDS: Ciprofloxacin/Dex *EAR* Susp 7.5 ML BOTTLE BOTH EARS SCH (22:10)
[2020-09-30] MEDS: MetroNIDAZOLE 500 MG/100 ML 500 MG/100 ML BAG IVPB SCH ×4 (00:36→22:55)
[2020-09-30] MEDS: Ringers Solution, Lactated 1,000 ML IVC SCH (00:39)
[2020-09-30] MEDS: *HR* OxyCODONE Immed Rel 5 MG TABLET PO PRN ×2 (02:54→12:47)
[2020-09-30] MEDS: Saliva Stimulant 44.3ml BOTTLE PO SCH ×5 (02:55→20:26)
[2020-09-30] MEDS: Cefepime HCl 2,000 MG in Water for inj. (sterile) 20 ML IVP SCH ×2 (05:40→17:30)
[2020-09-30 05:51] LABS: Basophils % 0.2 %; Eosinophils % 0.2 %; Hematocrit 28.1 % (37.5-50.1); Immature Granulocytes % 0.5 % (0-4); Lymphocytes % 8.7 %; Mean Corpuscular Volume 101.1 fL (83.0-100.0); Red Blood Count 2.78 M/mcL (4.19-5.50); Red Cell Distribution Width 14.9 % (11.5-14.5)
[2020-09-30 05:52] LABS: Hemoglobin 9.1 g/dL (12.9-16.9); Immature Platelets 3.6 % (1.1-6.1); Lymphocytes # 0.5 K/mcL (0.6-4.6); Mean Corpuscular HGB Conc 32.4 g/dL (31.6-35.5); Mean Corpuscular Hemoglobin 32.7 pg (28.0-33.3); Mean Platelet Volume 10.2 fL (9.4-12.4); Monocytes # 1.2 K/mcL (0.0-1.3); Monocytes % 19.8 %; Neutrophils # 4.3 K/mcL (1.6-8.9); Segmented Neutrophils % 70.6 %; White Blood Count 6.1 K/mcL (4.3-11.1)
[2020-09-30 05:55] LABS: Platelet Count 74 K/mcL (140-400)
[2020-09-30 05:58] LABS: Platelet Estimate Slight Decrease (Normal)
[2020-09-30 06:05] LABS: Potassium 2.8 mEq/L (3.5-5.1)
[2020-09-30] MEDS ORDERED: Potassium Chloride 40 MEQ, Lidocaine 1% 2 ML in 0.9 % Sodium Chloride 500 ML IVPB ONE (07:34)
[2020-09-30] MEDS ORDERED: Insulin DETEMIR 100 UNIT/ML X5UNITS SUBQ SCH (09:00)
[2020-09-30] MEDS: Insulin LISPRO 300 UNITS/3 ML VIAL SUBQ SCH ×4 (10:36→23:51)
[2020-09-30] MEDS: Folic Acid 1 MG TABLET PO SCH (10:48)
[2020-09-30] MEDS: allopurinoL 100 MG TABLET PO SCH (10:48)
[2020-09-30] MEDS: Cholecalciferol (D-3) 1,000 UNIT (25MCG) TABLET PO SCH (10:48)
[2020-09-30] MEDS: Nicotine 21 MG PATCH.TD24 TD SCH (10:51)
[2020-09-30] MEDS: Ciprofloxacin/Dex *EAR* Susp 7.5 ML BOTTLE BOTH EARS SCH ×2 (10:53→21:13)
[2020-09-30] MEDS: Nystatin SUSP 5 ML UD.LIQ BC SCH ×4 (10:54→20:20)
[2020-09-30] MEDS: Gabapentin 300 MG CAPSULE PO SCH ×3 (10:55→20:23)
[2020-09-30] MEDS: Insulin DETEMIR 100 UNIT/ML X5UNITS SUBQ SCH (11:03)
[2020-09-30] MEDS ORDERED: Potassium Chloride 20 MEQ, Lidocaine 1% 2 ML in 0.9 % Sodium Chloride 250 ML IVPB ONE (14:31)
[2020-09-30] MEDS ORDERED: D5% in Water 1,000 ML IVC PRN (15:01)
[2020-09-30] MEDS ORDERED: Dextrose Gel 15 GM/37.5 ML TUBE PO PRN ×2 (15:01)
[2020-09-30] MEDS ORDERED: *HR* Dextrose 50 % in Water (Vial) 50 ML VIAL IVP PRN (15:01)
[2020-09-30] MEDS: Potassium Chloride 40 MEQ in D5% in 0.9% NACL 1,000 ML IVC SCH (17:36)
[2020-09-30] MEDS: Morphine Sulfate 2 MG/ML SYRINGE IVP PRN (20:17)
[2020-10-01 03:06] LABS: Eosinophils % 0.2 %
[2020-10-01 03:08] LABS: Basophils % 0.2 %; Hemoglobin 7.3 g/dL (12.9-16.9); Immature Granulocytes % 0.5 % (0-4); Immature Platelets 4.1 % (1.1-6.1); Lymphocytes # 0.6 K/mcL (0.6-4.6); Mean Corpuscular HGB Conc 33.2 g/dL (31.6-35.5); Mean Corpuscular Hemoglobin 32.7 pg (28.0-33.3); Mean Corpuscular Volume 98.7 fL (83.0-100.0); Mean Platelet Volume 10.3 fL (9.4-12.4); Monocytes # 1.3 K/mcL (0.0-1.3); Monocytes % 21.5 %; Neutrophils # 4.1 K/mcL (1.6-8.9); Platelet Count 69 K/mcL (140-400); Red Blood Count 2.23 M/mcL (4.19-5.50); Red Cell Distribution Width 15.3 % (11.5-14.5); Segmented Neutrophils % 67.6 %
[2020-10-01 03:26] LABS: Calcium 7.4 mg/dL (8.6-10.3); Magnesium 1.5 mg/dL (1.6-2.6); Potassium 4.2 mEq/L (3.5-5.1)
[2020-10-01] MEDS: Saliva Stimulant 44.3ml BOTTLE PO SCH ×6 (04:08→20:58)
[2020-10-01] MEDS: Insulin LISPRO 300 UNITS/3 ML VIAL SUBQ SCH ×3 (06:03→23:50)
[2020-10-01] MEDS: Morphine Sulfate 2 MG/ML SYRINGE IVP PRN ×3 (06:04→20:58)
[2020-10-01] MEDS: Cefepime HCl 2,000 MG in Water for inj. (sterile) 20 ML IVP SCH ×2 (06:18→17:53)
[2020-10-01] MEDS ORDERED: Morphine Sulfate 2 MG/ML SYRINGE IVP PRN (08:24)
[2020-10-01] MEDS: Nystatin SUSP 5 ML UD.LIQ BC SCH ×3 (09:27→19:43)
[2020-10-01] MEDS: Nicotine 21 MG PATCH.TD24 TD SCH (09:29)
[2020-10-01] MEDS: Ciprofloxacin/Dex *EAR* Susp 7.5 ML BOTTLE BOTH EARS SCH ×2 (09:30→19:42)
[2020-10-01] MEDS: Insulin DETEMIR 100 UNIT/ML X5UNITS SUBQ SCH (09:30)
[2020-10-01] MEDS ORDERED: *HR* FentaNYL (PF) 100 MCG/2 ML VIAL ONE (10:35)
[2020-10-01] MEDS ORDERED: *HR* Propofol 200 MG/20 ML VIAL IVP ONE (10:35)
[2020-10-01] MEDS ORDERED: Lidocaine -MPF 2% 2 ML VIAL ONE (10:36)
[2020-10-01] MEDS ORDERED: *HR* Rocuronium Bromide 50 MG/5 ML VIAL ONE (10:57)
[2020-10-01] MEDS ORDERED: Ondansetron 4 MG/2 ML VIAL ONE (10:57)
[2020-10-01] MEDS ORDERED: Dexamethasone 4 MG/ML VIAL ONE (10:57)
[2020-10-01] MEDS ORDERED: D5% in Water 1,000 ML IVC PRN (14:18)
[2020-10-01] MEDS ORDERED: Chloraseptic Spray 177 ML BOTTLE MM PRN (14:18)
[2020-10-01] MEDS ORDERED: Naloxone 0.4 MG/ML INJ IVP PRN (14:18)
[2020-10-01] MEDS ORDERED: Dextrose Gel 15 GM/37.5 ML TUBE PO PRN ×2 (14:18)
[2020-10-01] MEDS ORDERED: GuaiFENesin Liq 200 MG/10 ML UDC PO PRN (14:18)
[2020-10-01] MEDS ORDERED: 0.9 % Sodium Chloride 250 ML ONE (14:26)
[2020-10-01] MEDS: Ringers Solution, Lactated 1,000 ML IVC SCH (15:16)
[2020-10-01] MEDS: Gabapentin 300 MG CAPSULE PO SCH ×2 (15:17→19:43)
[2020-10-01] MEDS ORDERED: Furosemide 40 MG/4 ML VIAL IVP ONE (16:47)
[2020-10-01] MEDS: MetroNIDAZOLE 500 MG/100 ML 500 MG/100 ML BAG IVPB SCH ×2 (17:56→23:34)
[2020-10-01] MEDS: Potassium Chloride 40 MEQ in D5% in 0.9% NACL 1,000 ML IVC SCH ×2 (19:39→19:41)
[2020-10-02] MEDS: Morphine Sulfate 2 MG/ML SYRINGE IVP PRN ×4 (04:47→20:20)
[2020-10-02] MEDS: Saliva Stimulant 44.3ml BOTTLE PO SCH ×6 (04:48→20:17)
[2020-10-02] MEDS: Ringers Solution, Lactated 1,000 ML IVC SCH ×2 (04:49→15:40)
[2020-10-02 04:56] LABS: Basophils % 0.4 %; Eosinophils % 0.2 %; Hematocrit 29.3 % (37.5-50.1); Immature Granulocytes % 0.2 % (0-4); Lymphocytes # 0.7 K/mcL (0.6-4.6); Lymphocytes % 13.2 %; Mean Corpuscular HGB Conc 32.8 g/dL (31.6-35.5); Mean Corpuscular Hemoglobin 32.5 pg (28.0-33.3); Mean Corpuscular Volume 99.3 fL (83.0-100.0); Mean Platelet Volume 10.4 fL (9.4-12.4); Monocytes % 17.8 %; Neutrophils # 3.8 K/mcL (1.6-8.9); Platelet Count 103 K/mcL (140-400); Red Blood Count 2.95 M/mcL (4.19-5.50); Red Cell Distribution Width 15.4 % (11.5-14.5); Segmented Neutrophils % 68.2 %; White Blood Count 5.6 K/mcL (4.3-11.1)
[2020-10-02 04:57] LABS: Hemoglobin 9.6 g/dL (12.9-16.9)
[2020-10-02 05:14] LABS: Calcium 8.1 mg/dL (8.6-10.3); Magnesium 1.6 mg/dL (1.6-2.6); Potassium 3.2 mEq/L (3.5-5.1)
[2020-10-02] MEDS: Cefepime HCl 2,000 MG in Water for inj. (sterile) 20 ML IVP SCH ×2 (05:22→17:20)
[2020-10-02] MEDS: Insulin LISPRO 300 UNITS/3 ML VIAL SUBQ SCH ×3 (05:23→17:21)
[2020-10-02] MEDS ORDERED: Potassium Chloride 40 MEQ, Lidocaine 1% 2 ML in 0.9 % Sodium Chloride 500 ML IVPB ONE (07:58)
[2020-10-02] MEDS: Nystatin SUSP 5 ML UD.LIQ BC SCH ×4 (10:28→20:08)
[2020-10-02] MEDS: Nicotine 21 MG PATCH.TD24 TD SCH (10:28)
[2020-10-02] MEDS: MetroNIDAZOLE 500 MG/100 ML 500 MG/100 ML BAG IVPB SCH ×3 (10:31→23:54)
[2020-10-02] MEDS: Gabapentin 300 MG CAPSULE PO SCH ×3 (10:34→20:10)
[2020-10-02] MEDS: Ciprofloxacin/Dex *EAR* Susp 7.5 ML BOTTLE BOTH EARS SCH ×2 (10:34→20:16)
[2020-10-02] MEDS: Insulin DETEMIR 100 UNIT/ML X5UNITS SUBQ SCH (13:04)
[2020-10-02] MEDS: allopurinoL 100 MG TABLET PO SCH (15:38)
[2020-10-02] MEDS: Folic Acid 1 MG TABLET PO SCH (15:38)
[2020-10-02] MEDS: Cholecalciferol (D-3) 1,000 UNIT (25MCG) TABLET PO SCH (15:38)
[2020-10-02] MEDS: Potassium Chloride 40 MEQ in D5% in 0.9% NACL 1,000 ML IVC SCH (18:30)
[2020-10-03] MEDS: Insulin LISPRO 300 UNITS/3 ML VIAL SUBQ SCH ×4 (01:57→16:16)
[2020-10-03] MEDS: Morphine Sulfate 2 MG/ML SYRINGE IVP PRN ×5 (04:01→23:35)
[2020-10-03] MEDS: Cefepime HCl 2,000 MG in Water for inj. (sterile) 20 ML IVP SCH ×2 (05:31→18:44)
[2020-10-03 07:27] LABS: Basophils % 0.5 %; Eosinophils % 0.2 %; Hematocrit 25.6 % (37.5-50.1); Hemoglobin 8.4 g/dL (12.9-16.9); Immature Granulocytes % 0.2 % (0-4); Immature Platelets 4.4 % (1.1-6.1); Lymphocytes # 0.5 K/mcL (0.6-4.6); Lymphocytes % 11.3 %; Mean Corpuscular HGB Conc 32.8 g/dL (31.6-35.5); Mean Corpuscular Hemoglobin 33.2 pg (28.0-33.3); Mean Corpuscular Volume 101.2 fL (83.0-100.0); Mean Platelet Volume 10.2 fL (9.4-12.4); Monocytes # 0.9 K/mcL (0.0-1.3); Monocytes % 21.3 %; Neutrophils # 2.9 K/mcL (1.6-8.9); Red Blood Count 2.53 M/mcL (4.19-5.50); Red Cell Distribution Width 15.9 % (11.5-14.5); Segmented Neutrophils % 66.5 %; White Blood Count 4.4 K/mcL (4.3-11.1)
[2020-10-03 07:29] LABS: Platelet Count 89 K/mcL (140-400)
[2020-10-03 07:47] LABS: Magnesium 1.8 mg/dL (1.6-2.6); Phosphorous 2.3 mg/dL (2.7-4.5); Potassium 3.2 mEq/L (3.5-5.1)
[2020-10-03] MEDS: Nystatin SUSP 5 ML UD.LIQ BC SCH ×4 (07:56→20:56)
[2020-10-03] MEDS: Nicotine 21 MG PATCH.TD24 TD SCH (07:56)
[2020-10-03] MEDS: Saliva Stimulant 44.3ml BOTTLE PO SCH ×5 (07:57→18:45)
[2020-10-03] MEDS: Ciprofloxacin/Dex *EAR* Susp 7.5 ML BOTTLE BOTH EARS SCH ×2 (07:58→21:22)
[2020-10-03] MEDS ORDERED: Potassium Phosphate 44 MEQ in 0.9 % Sodium Chloride 250 ML IVPB ONE (07:58)
[2020-10-03] MEDS ORDERED: Potassium Chloride 20 MEQ, Lidocaine 1% 2 ML in 0.9 % Sodium Chloride 250 ML IVPB ONE (07:59)
[2020-10-03] MEDS: Insulin DETEMIR 100 UNIT/ML X5UNITS SUBQ SCH (08:17)
[2020-10-03] MEDS: MetroNIDAZOLE 500 MG/100 ML 500 MG/100 ML BAG IVPB SCH ×2 (08:18→15:55)
[2020-10-03] MEDS: Cholecalciferol (D-3) 1,000 UNIT (25MCG) TABLET PO SCH (08:43)
[2020-10-03] MEDS: allopurinoL 100 MG TABLET PO SCH (08:43)
[2020-10-03] MEDS: Folic Acid 1 MG TABLET PO SCH (08:44)
[2020-10-03] MEDS: Gabapentin 300 MG CAPSULE PO SCH ×3 (08:44→21:23)
[2020-10-03 09:21] LABS: Anisocytosis 1+ (Not Present); Toxic Granulation Present (Not Present)
[2020-10-03 09:22] LABS: Platelet Estimate Decreased (Normal)
[2020-10-03] MEDS: Ringers Solution, Lactated 1,000 ML IVC SCH (11:24)
[2020-10-03] MEDS: *HR* Dextrose 50 % in Water (Vial) 50 ML VIAL IVP PRN ×2 (16:10→18:08)
[2020-10-03] MEDS: metroNIDAZOLE 500 MG TABLET GTUBE SCH (21:23)
[2020-10-04] MEDS: Saliva Stimulant 44.3ml BOTTLE PO SCH ×6 (03:07→22:58)
[2020-10-04] MEDS: Insulin LISPRO 300 UNITS/3 ML VIAL SUBQ SCH ×5 (03:08→23:06)
[2020-10-04] MEDS: Cefepime HCl 2,000 MG in Water for inj. (sterile) 20 ML IVP SCH ×2 (05:16→17:03)
[2020-10-04 05:26] LABS: Basophils % 0.2 %; Eosinophils % 0.2 %; Immature Granulocytes % 0.4 % (0-4); Mean Platelet Volume 10.3 fL (9.4-12.4)
[2020-10-04 05:27] LABS: Hematocrit 26.6 % (37.5-50.1); Hemoglobin 8.5 g/dL (12.9-16.9); Immature Platelets 3.9 % (1.1-6.1); Lymphocytes # 0.6 K/mcL (0.6-4.6); Lymphocytes % 9.7 %; Mean Corpuscular Hemoglobin 32.3 pg (28.0-33.3); Mean Corpuscular Volume 101.1 fL (83.0-100.0); Monocytes % 17.1 %; Neutrophils # 4.1 K/mcL (1.6-8.9); Platelet Count 100 K/mcL (140-400); Red Blood Count 2.63 M/mcL (4.19-5.50); Red Cell Distribution Width 16.1 % (11.5-14.5); Segmented Neutrophils % 72.4 %; White Blood Count 5.7 K/mcL (4.3-11.1)
[2020-10-04] MEDS: Morphine Sulfate 2 MG/ML SYRINGE IVP PRN ×4 (05:35→23:55)
[2020-10-04 05:44] LABS: Calcium 8.2 mg/dL (8.6-10.3); Magnesium 1.4 mg/dL (1.6-2.6); Potassium 3.1 mEq/L (3.5-5.1)
[2020-10-04] MEDS ORDERED: Potassium Chloride 40 MEQ, Lidocaine 1% 2 ML in 0.9 % Sodium Chloride 500 ML IVPB ONE (07:49)
[2020-10-04] MEDS: Potassium Chloride Elixir 20 MEQ/15 ML UDC PO SCH (08:32)
[2020-10-04] MEDS: Gabapentin 300 MG CAPSULE PO SCH ×3 (08:32→19:53)
[2020-10-04] MEDS: allopurinoL 100 MG TABLET PO SCH (08:32)
[2020-10-04] MEDS: metroNIDAZOLE 500 MG TABLET GTUBE SCH ×3 (08:32→19:53)
[2020-10-04] MEDS: Nystatin SUSP 5 ML UD.LIQ BC SCH ×4 (08:33→19:53)
[2020-10-04] MEDS: Cholecalciferol (D-3) 1,000 UNIT (25MCG) TABLET PO SCH (08:33)
[2020-10-04] MEDS: Folic Acid 1 MG TABLET PO SCH (08:33)
[2020-10-04] MEDS: Furosemide 40 MG/4 ML VIAL IVP SCH (08:33)
[2020-10-04] MEDS: Ciprofloxacin/Dex *EAR* Susp 7.5 ML BOTTLE BOTH EARS SCH ×2 (08:34→19:54)
[2020-10-04] MEDS: Nicotine 21 MG PATCH.TD24 TD SCH (08:34)
[2020-10-04] MEDS: Insulin DETEMIR 100 UNIT/ML X5UNITS SUBQ SCH ×2 (09:00→19:54)
[2020-10-04 10:54] LABS: Bilirubin,Urine Negative (Negative); Blood,Urine Negative (Negative); Clarity,Urine Clear (Clear); Color,Urine Colorless (Yellow); Glucose,Urine (UA) 500 mg/dL (Normal); Ketones,Urine Negative (Negative); Leukocyte Esterase,Urine Negative (Negative); Mucus,Urine Few per lpf (None-Few); Nitrite,Urine Negative (Negative); Protein,Urine Negative (Neg-Trace); RBC,Urine 0-3 per hpf (0-3); Specific Gravity,Urine 1.009 (1.010-1.025); Urobilinogen,Urine Normal (Normal); WBC,Urine 0-3 per hpf (0-3)
[2020-10-04] MEDS ORDERED: D5% in Water 1,000 ML IVC PRN (15:22)
[2020-10-04] MEDS ORDERED: Dextrose Gel 15 GM/37.5 ML TUBE PO PRN ×2 (15:22)
[2020-10-04] MEDS ORDERED: *HR* Dextrose 50 % in Water (Vial) 50 ML VIAL IVP PRN (15:22)
[2020-10-04] MEDS ORDERED: Insulin LISPRO 300 UNITS/3 ML VIAL SUBQ SCH (18:00)
[2020-10-05 01:25] LABS: Basophils % 0.2 %; Hematocrit 26.1 % (37.5-50.1); Hemoglobin 8.5 g/dL (12.9-16.9); Mean Corpuscular HGB Conc 32.6 g/dL (31.6-35.5); Red Cell Distribution Width 16.3 % (11.5-14.5)
[2020-10-05 01:27] LABS: Eosinophils % 0.5 %; Immature Granulocytes % 0.5 % (0-4); Immature Platelets 4.7 % (1.1-6.1); Lymphocytes # 0.6 K/mcL (0.6-4.6); Lymphocytes % 13.5 %; Mean Corpuscular Hemoglobin 32.9 pg (28.0-33.3); Mean Corpuscular Volume 101.2 fL (83.0-100.0); Mean Platelet Volume 10.4 fL (9.4-12.4); Monocytes # 0.9 K/mcL (0.0-1.3); Neutrophils # 2.9 K/mcL (1.6-8.9); Red Blood Count 2.58 M/mcL (4.19-5.50); Segmented Neutrophils % 65.3 %; White Blood Count 4.4 K/mcL (4.3-11.1)
[2020-10-05 01:34] LABS: Platelet Count 93 K/mcL (140-400)
[2020-10-05 01:42] LABS: Magnesium 1.6 mg/dL (1.6-2.6); Phosphorous 2.5 mg/dL (2.7-4.5); Potassium 3.1 mEq/L (3.5-5.1)
[2020-10-05] MEDS: Saliva Stimulant 44.3ml BOTTLE PO SCH ×6 (02:21→22:26)
[2020-10-05] MEDS: Insulin LISPRO 300 UNITS/3 ML VIAL SUBQ SCH ×3 (05:24→16:20)
[2020-10-05] MEDS: Cefepime HCl 2,000 MG in Water for inj. (sterile) 20 ML IVP SCH ×2 (05:28→16:28)
[2020-10-05] MEDS: Morphine Sulfate 2 MG/ML SYRINGE IVP PRN ×3 (05:29→22:27)
[2020-10-05] MEDS: Folic Acid 1 MG TABLET PO SCH (07:58)
[2020-10-05] MEDS: Gabapentin 300 MG CAPSULE PO SCH ×3 (07:58→22:24)
[2020-10-05] MEDS: allopurinoL 100 MG TABLET PO SCH (07:59)
[2020-10-05] MEDS: metroNIDAZOLE 500 MG TABLET GTUBE SCH ×3 (08:01→22:24)
[2020-10-05] MEDS: Furosemide 40 MG/4 ML VIAL IVP SCH (08:02)
[2020-10-05] MEDS: Cholecalciferol (D-3) 1,000 UNIT (25MCG) TABLET PO SCH (08:02)
[2020-10-05] MEDS: Potassium Chloride Elixir 20 MEQ/15 ML UDC PO SCH (08:02)
[2020-10-05] MEDS: Nicotine 21 MG PATCH.TD24 TD SCH (08:02)
[2020-10-05] MEDS: Nystatin SUSP 5 ML UD.LIQ BC SCH ×4 (08:03→22:24)
[2020-10-05] MEDS: Insulin DETEMIR 100 UNIT/ML X5UNITS SUBQ SCH (08:05)
[2020-10-05] MEDS: Ciprofloxacin/Dex *EAR* Susp 7.5 ML BOTTLE BOTH EARS SCH ×2 (08:06→22:23)
[2020-10-05] MEDS ORDERED: Potassium Phosphate 44 MEQ in 0.9 % Sodium Chloride 250 ML IVPB ONE (08:17)
[2020-10-05] MEDS ORDERED: Calcium Gluconate 1gm/50mL 1 GM/50 ML BAG IVPB SCH (08:30)
[2020-10-05] MEDS: *HR* Dextrose 50 % in Water (Vial) 50 ML VIAL IVP PRN (16:28)
[2020-10-05] MEDS ORDERED: Calcium Gluconate 1gm/50mL 1 GM/50 ML BAG IVPB ONE ×2 (17:47→18:47)
[2020-10-06] MEDS: Saliva Stimulant 44.3ml BOTTLE PO SCH ×6 (03:11→22:05)
[2020-10-06] MEDS: Morphine Sulfate 2 MG/ML SYRINGE IVP PRN ×3 (03:57→19:16)
[2020-10-06 04:08] LABS: Hemoglobin 8.2 g/dL (12.9-16.9); Immature Granulocytes % 0.4 % (0-4)
[2020-10-06 04:10] LABS: Eosinophils % 1.1 %; Immature Platelets 3.7 % (1.1-6.1); Lymphocytes % 19.6 %; Mean Corpuscular HGB Conc 31.5 g/dL (31.6-35.5); Mean Corpuscular Hemoglobin 32.8 pg (28.0-33.3); Mean Platelet Volume 10.6 fL (9.4-12.4); Monocytes # 0.7 K/mcL (0.0-1.3); Monocytes % 24.4 %; Neutrophils # 1.5 K/mcL (1.6-8.9); Red Cell Distribution Width 16.5 % (11.5-14.5); Segmented Neutrophils % 54.5 %; White Blood Count 2.8 K/mcL (4.3-11.1)
[2020-10-06 04:11] LABS: Lymphocytes # 0.6 K/mcL (0.6-4.6); Platelet Count 79 K/mcL (140-400)
[2020-10-06 04:19] LABS: INR 1.5; Prothrombin Time 16.7 Seconds (9.4-12.1)
[2020-10-06 04:30] LABS: Albumin 2.9 g/dL (3.5-5.7); Albumin/Globulin Ratio 0.9 (1.1-2.2); Bilirubin,Total 0.4 mg/dL (0.3-1.0); Calcium 8.7 mg/dL (8.6-10.3); Globulin 3.2 g/dL (2.4-3.5); Phosphorous 4.5 mg/dL (2.7-4.5); Total Protein 6.1 g/dL (6.4-8.9)
[2020-10-06] MEDS: Cefepime HCl 2,000 MG in Water for inj. (sterile) 20 ML IVP SCH ×2 (05:09→16:48)
[2020-10-06] MEDS: Insulin LISPRO 300 UNITS/3 ML VIAL SUBQ SCH ×4 (07:52→20:23)
[2020-10-06] MEDS: Gabapentin 300 MG CAPSULE PO SCH ×3 (07:57→20:13)
[2020-10-06] MEDS: Folic Acid 1 MG TABLET PO SCH (07:57)
[2020-10-06] MEDS: metroNIDAZOLE 500 MG TABLET GTUBE SCH ×3 (07:57→20:13)
[2020-10-06] MEDS: allopurinoL 100 MG TABLET PO SCH (07:57)
[2020-10-06] MEDS: Cholecalciferol (D-3) 1,000 UNIT (25MCG) TABLET PO SCH (07:59)
[2020-10-06] MEDS: Nicotine 21 MG PATCH.TD24 TD SCH (07:59)
[2020-10-06] MEDS: Nystatin SUSP 5 ML UD.LIQ BC SCH ×4 (08:00→20:12)
[2020-10-06] MEDS: Potassium Chloride Elixir 20 MEQ/15 ML UDC PO SCH (08:00)
[2020-10-06] MEDS: Ciprofloxacin/Dex *EAR* Susp 7.5 ML BOTTLE BOTH EARS SCH ×2 (08:25→20:12)
[2020-10-06 08:34] LABS: Estimated Average Glucose 303 mg/dl; Hemoglobin A1C 12.2 %
[2020-10-06] MEDS ORDERED: Insulin DETEMIR 100 UNIT/ML X5UNITS SUBQ SCH (09:00)
[2020-10-06] MEDS ORDERED: Ipratropium/Albuterol Neb 3 ML IH PRN (18:29)
[2020-10-06] MEDS ORDERED: Insulin LISPRO 300 UNITS/3 ML VIAL SUBQ SCH (21:00)
[2020-10-06] MEDS: *HR* Dextrose 50 % in Water (Vial) 50 ML VIAL IVP PRN (21:26)
[2020-10-07] MEDS: *HR* Dextrose 50 % in Water (Vial) 50 ML VIAL IVP PRN (00:58)
[2020-10-07] MEDS: Morphine Sulfate 2 MG/ML SYRINGE IVP PRN ×5 (01:10→23:03)
[2020-10-07] MEDS: Saliva Stimulant 44.3ml BOTTLE PO SCH ×6 (02:30→21:31)
[2020-10-07 04:26] LABS: INR 1.5; Prothrombin Time 17.5 Seconds (9.4-12.1)
[2020-10-07 04:32] LABS: Albumin 2.6 g/dL (3.5-5.7); Albumin/Globulin Ratio 0.8 (1.1-2.2); Bilirubin,Total 0.4 mg/dL (0.3-1.0); Calcium 8.4 mg/dL (8.6-10.3); Globulin 3.1 g/dL (2.4-3.5); Phosphorous 4.1 mg/dL (2.7-4.5); Potassium 3.8 mEq/L (3.5-5.1); Total Protein 5.7 g/dL (6.4-8.9)
[2020-10-07] MEDS: Cefepime HCl 2,000 MG in Water for inj. (sterile) 20 ML IVP SCH (05:27)
[2020-10-07] MEDS: Nicotine 21 MG PATCH.TD24 TD SCH (08:27)
[2020-10-07] MEDS: Insulin LISPRO 300 UNITS/3 ML VIAL SUBQ SCH ×4 (08:27→20:20)
[2020-10-07] MEDS: allopurinoL 100 MG TABLET PO SCH (08:34)
[2020-10-07] MEDS: Folic Acid 1 MG TABLET PO SCH (08:34)
[2020-10-07] MEDS: Gabapentin 300 MG CAPSULE PO SCH ×3 (08:34→20:20)
[2020-10-07] MEDS: metroNIDAZOLE 500 MG TABLET GTUBE SCH ×2 (08:34→14:47)
[2020-10-07] MEDS: Cholecalciferol (D-3) 1,000 UNIT (25MCG) TABLET PO SCH (08:35)
[2020-10-07] MEDS: Ciprofloxacin/Dex *EAR* Susp 7.5 ML BOTTLE BOTH EARS SCH ×2 (08:39→20:19)
[2020-10-07] MEDS ORDERED: Insulin DETEMIR 100 UNIT/ML X5UNITS SUBQ SCH (09:00)
[2020-10-07 10:10] LABS: Hematocrit 25.6 % (37.5-50.1); Mean Corpuscular HGB Conc 31.3 g/dL (31.6-35.5)
[2020-10-07] MEDS: Nystatin SUSP 5 ML UD.LIQ BC SCH ×4 (10:11→20:20)
[2020-10-07 10:12] LABS: Immature Platelets 5.4 % (1.1-6.1); Lymphocytes # 0.4 K/mcL (0.6-4.6); Mean Corpuscular Hemoglobin 33.1 pg (28.0-33.3); Mean Corpuscular Volume 105.8 fL (83.0-100.0); Mean Platelet Volume 11.9 fL (9.4-12.4); Monocytes # 0.7 K/mcL (0.0-1.3); Platelet Count 71 K/mcL (140-400); Red Blood Count 2.42 M/mcL (4.19-5.50); Red Cell Distribution Width 16.7 % (11.5-14.5); White Blood Count 3.3 K/mcL (4.3-11.1)
[2020-10-07] MEDS ORDERED: Ondansetron 4 MG/2 ML VIAL IVP PRN (11:43)
[2020-10-07 13:08] LABS: Neutrophils # 2.2 K/mcL (1.6-8.9); Platelet Estimate Decreased (Normal)
[2020-10-07] MEDS: levoFLOXacin 750 MG TABLET GTUBE SCH (16:57)
[2020-10-07] MEDS: D5% in Water 1,000 ML IVC SCH (17:21)
[2020-10-08] MEDS: Saliva Stimulant 44.3ml BOTTLE PO SCH ×6 (02:22→19:49)
[2020-10-08 03:42] LABS: Basophils % 0.3 %; Hemoglobin 8.1 g/dL (12.9-16.9); Immature Granulocytes % 0.3 % (0-4)
[2020-10-08 03:44] LABS: Eosinophils # 0.1 K/mcL (0.0-0.6); Hematocrit 25.6 % (37.5-50.1); Immature Platelets 6.9 % (1.1-6.1); Lymphocytes # 0.6 K/mcL (0.6-4.6); Lymphocytes % 16.6 %; Mean Corpuscular HGB Conc 31.6 g/dL (31.6-35.5); Mean Corpuscular Hemoglobin 32.5 pg (28.0-33.3); Mean Corpuscular Volume 102.8 fL (83.0-100.0); Monocytes # 0.7 K/mcL (0.0-1.3); Monocytes % 19.5 %; Neutrophils # 2.1 K/mcL (1.6-8.9); Red Blood Count 2.49 M/mcL (4.19-5.50); Red Cell Distribution Width 16.7 % (11.5-14.5); Segmented Neutrophils % 61.3 %; White Blood Count 3.4 K/mcL (4.3-11.1)
[2020-10-08 03:47] LABS: Platelet Count 68 K/mcL (140-400)
[2020-10-08 03:48] LABS: INR 1.6; Prothrombin Time 18.4 Seconds (9.4-12.1)
[2020-10-08 04:02] LABS: Platelet Estimate Decreased (Normal)
[2020-10-08 04:05] LABS: Albumin 2.8 g/dL (3.5-5.7); Albumin/Globulin Ratio 0.9 (1.1-2.2); Bilirubin,Total 0.4 mg/dL (0.3-1.0); Calcium 8.2 mg/dL (8.6-10.3); Globulin 3.1 g/dL (2.4-3.5); Phosphorous 3.5 mg/dL (2.7-4.5); Total Protein 5.9 g/dL (6.4-8.9)
[2020-10-08] MEDS: D5% in Water 1,000 ML IVC SCH (06:23)
[2020-10-08] MEDS: Morphine Sulfate 2 MG/ML SYRINGE IVP PRN ×2 (06:24→19:47)
[2020-10-08] MEDS ORDERED: Calcium Gluconate 1gm/50mL 1 GM/50 ML BAG IVPB SCH (07:30)
[2020-10-08] MEDS: Folic Acid 1 MG TABLET PO SCH (08:50)
[2020-10-08] MEDS: Cholecalciferol (D-3) 1,000 UNIT (25MCG) TABLET PO SCH (08:50)
[2020-10-08] MEDS: allopurinoL 100 MG TABLET PO SCH (08:50)
[2020-10-08] MEDS: Gabapentin 300 MG CAPSULE PO SCH ×3 (08:50→19:50)
[2020-10-08] MEDS: Insulin LISPRO 300 UNITS/3 ML VIAL SUBQ SCH ×4 (08:54→22:39)
[2020-10-08] MEDS: Nystatin SUSP 5 ML UD.LIQ BC SCH ×4 (08:55→19:47)
[2020-10-08] MEDS: Ciprofloxacin/Dex *EAR* Susp 7.5 ML BOTTLE BOTH EARS SCH ×2 (08:55→19:49)
[2020-10-08] MEDS: Nicotine 21 MG PATCH.TD24 TD SCH (09:27)
[2020-10-09] MEDS: Morphine Sulfate 2 MG/ML SYRINGE IVP PRN ×3 (01:03→12:20)
[2020-10-09] MEDS: Saliva Stimulant 44.3ml BOTTLE PO SCH ×5 (03:28→22:59)
[2020-10-09 04:08] LABS: Hemoglobin 7.9 g/dL (12.9-16.9); Immature Granulocytes % 0.4 % (0-4)
[2020-10-09 04:10] LABS: Eosinophils # 0.1 K/mcL (0.0-0.6); Eosinophils % 2.6 %; Hematocrit 24.4 % (37.5-50.1); Immature Platelets 6.6 % (1.1-6.1); Lymphocytes # 0.6 K/mcL (0.6-4.6); Lymphocytes % 22.6 %; Mean Corpuscular HGB Conc 32.4 g/dL (31.6-35.5); Mean Corpuscular Hemoglobin 32.8 pg (28.0-33.3); Mean Corpuscular Volume 101.2 fL (83.0-100.0); Mean Platelet Volume 11.6 fL (9.4-12.4); Monocytes # 0.7 K/mcL (0.0-1.3); Monocytes % 24.4 %; Neutrophils # 1.4 K/mcL (1.6-8.9); Red Blood Count 2.41 M/mcL (4.19-5.50); Red Cell Distribution Width 16.1 % (11.5-14.5); White Blood Count 2.7 K/mcL (4.3-11.1)
[2020-10-09 04:18] LABS: Platelet Count 64 K/mcL (140-400)
[2020-10-09 04:31] LABS: Albumin 2.5 g/dL (3.5-5.7); Albumin/Globulin Ratio 0.8 (1.1-2.2); Bilirubin,Total 0.4 mg/dL (0.3-1.0); Calcium 8.4 mg/dL (8.6-10.3); Globulin 3.1 g/dL (2.4-3.5); Magnesium 1.7 mg/dL (1.6-2.6); Phosphorous 3.6 mg/dL (2.7-4.5); Potassium 3.5 mEq/L (3.5-5.1); Total Protein 5.6 g/dL (6.4-8.9)
[2020-10-09] MEDS: Nystatin SUSP 5 ML UD.LIQ BC SCH ×4 (09:36→22:57)
[2020-10-09] MEDS: Nicotine 21 MG PATCH.TD24 TD SCH (09:36)
[2020-10-09] MEDS: Gabapentin 300 MG CAPSULE PO SCH ×3 (09:36→22:57)
[2020-10-09] MEDS: Folic Acid 1 MG TABLET PO SCH (09:36)
[2020-10-09] MEDS: allopurinoL 100 MG TABLET PO SCH (09:36)
[2020-10-09] MEDS: Cholecalciferol (D-3) 1,000 UNIT (25MCG) TABLET PO SCH (09:36)
[2020-10-09] MEDS: Insulin LISPRO 300 UNITS/3 ML VIAL SUBQ SCH ×4 (09:37→22:42)
[2020-10-09] MEDS: Calcium Gluconate 1gm/50mL 1 GM/50 ML BAG IVPB SCH ×2 (09:37→10:40)
[2020-10-09] MEDS: Ciprofloxacin/Dex *EAR* Susp 7.5 ML BOTTLE BOTH EARS SCH (09:38)
[2020-10-09] MEDS ORDERED: Ringers Solution, Lactated 1,000 ML IVC SCH (13:45)
[2020-10-09] MEDS: levoFLOXacin 750 MG TABLET GTUBE SCH (14:52)
[2020-10-10] MEDS: Saliva Stimulant 44.3ml BOTTLE PO SCH ×6 (02:00→20:10)
[2020-10-10 05:02] LABS: Hemoglobin 7.4 g/dL (12.9-16.9); Mean Corpuscular Hemoglobin 32.9 pg (28.0-33.3); Red Blood Count 2.25 M/mcL (4.19-5.50)
[2020-10-10 05:04] LABS: Eosinophils # 0.1 K/mcL (0.0-0.6); Eosinophils % 2.7 %; Hematocrit 22.5 % (37.5-50.1); Immature Platelets 8.2 % (1.1-6.1); Lymphocytes # 0.5 K/mcL (0.6-4.6); Lymphocytes % 20.8 %; Mean Corpuscular HGB Conc 32.9 g/dL (31.6-35.5); Mean Platelet Volume 11.1 fL (9.4-12.4); Monocytes # 0.5 K/mcL (0.0-1.3); Neutrophils # 1.5 K/mcL (1.6-8.9); Red Cell Distribution Width 16.3 % (11.5-14.5); Segmented Neutrophils % 56.5 %; White Blood Count 2.6 K/mcL (4.3-11.1)
[2020-10-10 05:05] LABS: Platelet Count 67 K/mcL (140-400)
[2020-10-10 05:35] LABS: Albumin 2.5 g/dL (3.5-5.7); Albumin/Globulin Ratio 0.9 (1.1-2.2); Bilirubin,Total 0.4 mg/dL (0.3-1.0); Calcium 8.3 mg/dL (8.6-10.3); Globulin 2.9 g/dL (2.4-3.5); Magnesium 1.9 mg/dL (1.6-2.6); Phosphorous 3.5 mg/dL (2.7-4.5); Potassium 3.8 mEq/L (3.5-5.1); Total Protein 5.4 g/dL (6.4-8.9)
[2020-10-10 07:18] LABS: Platelet Estimate Decreased (Normal)
[2020-10-10] MEDS ORDERED: Calcium Gluconate 1gm/50mL 1 GM/50 ML BAG IVPB SCH (08:30)
[2020-10-10] MEDS: Insulin LISPRO 300 UNITS/3 ML VIAL SUBQ SCH ×4 (10:21→20:29)
[2020-10-10] MEDS: Cholecalciferol (D-3) 1,000 UNIT (25MCG) TABLET PO SCH (10:22)
[2020-10-10] MEDS: Nystatin SUSP 5 ML UD.LIQ BC SCH ×4 (10:22→20:12)
[2020-10-10] MEDS: Folic Acid 1 MG TABLET PO SCH (10:22)
[2020-10-10] MEDS: allopurinoL 100 MG TABLET PO SCH (10:24)
[2020-10-10] MEDS: Nicotine 21 MG PATCH.TD24 TD SCH (10:24)
[2020-10-10] MEDS: Gabapentin 300 MG CAPSULE PO SCH ×3 (10:24→20:08)
[2020-10-10] MEDS ORDERED: Ringers Solution, Lactated 1,000 ML IVC SCH (15:15)
[2020-10-11] MEDS: Saliva Stimulant 44.3ml BOTTLE PO SCH ×4 (03:30→15:58)
[2020-10-11] MEDS: Insulin LISPRO 300 UNITS/3 ML VIAL SUBQ SCH ×2 (08:02→10:59)
[2020-10-11] MEDS ORDERED: GuaiFENesin Liq 200 MG/10 ML UDC GTUBE PRN (08:15)
[2020-10-11] MEDS: Cholecalciferol (D-3) 1,000 UNIT (25MCG) TABLET PO SCH (08:58)
[2020-10-11] MEDS: Nystatin SUSP 5 ML UD.LIQ BC SCH ×2 (08:58→12:05)
[2020-10-11] MEDS: Gabapentin 300 MG CAPSULE GTUBE SCH ×2 (08:58→15:07)
[2020-10-11] MEDS: Nicotine 21 MG PATCH.TD24 TD SCH (08:59)
[2020-10-11] MEDS ORDERED: Docusate Oral Soln 100 MG/10 ML UDC GTUBE SCH (09:00)
[2020-10-11] MEDS ORDERED: Folic Acid 1 MG TABLET GTUBE SCH (09:00)
[2020-10-11] MEDS ORDERED: allopurinoL 100 MG TABLET GTUBE SCH (09:00)
[2020-10-11 12:41] LABS: Basophils % 0.2 %; Hemoglobin 8.5 g/dL (12.9-16.9); Mean Corpuscular Volume 100.4 fL (83.0-100.0)
[2020-10-11 12:42] LABS: Eosinophils # 0.1 K/mcL (0.0-0.6); Eosinophils % 1.6 %; Hematocrit 26.2 % (37.5-50.1); Immature Granulocytes % 0.2 % (0-4); Immature Platelets 7.7 % (1.1-6.1); Lymphocytes # 0.8 K/mcL (0.6-4.6); Lymphocytes % 18.6 %; Mean Corpuscular HGB Conc 32.4 g/dL (31.6-35.5); Mean Corpuscular Hemoglobin 32.6 pg (28.0-33.3); Mean Platelet Volume 11.2 fL (9.4-12.4); Monocytes # 0.8 K/mcL (0.0-1.3); Monocytes % 17.6 %; Platelet Count 104 K/mcL (140-400); Red Blood Count 2.61 M/mcL (4.19-5.50); Segmented Neutrophils % 61.8 %; White Blood Count 4.3 K/mcL (4.3-11.1)
[2020-10-11 12:52] LABS: Neutrophils # 2.7 K/mcL (1.6-8.9)
[2020-10-11 13:07] LABS: Albumin/Globulin Ratio 0.9 (1.1-2.2); Bilirubin,Total 0.4 mg/dL (0.3-1.0); Calcium 8.7 mg/dL (8.6-10.3); Globulin 3.5 g/dL (2.4-3.5); Magnesium 1.6 mg/dL (1.6-2.6); Potassium 3.6 mEq/L (3.5-5.1); Total Protein 6.5 g/dL (6.4-8.9)
[2020-10-11] MEDS: levoFLOXacin 750 MG TABLET GTUBE SCH (15:07)
[2020-10-11 16:23] VITALS: BP 129/82
== END 2020-10-11 17:28 | disposition home health service (06) | DRG 137 ==
LOC: 2NNU → SUATTDRO 09-25 03:58 → 2NENU 09-25 19:14
PROVIDERS: ADMIT Internal Medicine; ATTEND Internal Medicine

== ENCOUNTER 2020-10-15 19:55 | Observation (INO) ==
[2020-10-15] MEDS ORDERED: Isovue-370 500 ML BOTTLE IVP ONE (21:20)
[2020-10-15 21:52] LABS: Bilirubin,Urine Negative (Negative); Blood,Urine Negative (Negative); Clarity,Urine Clear (Clear); Color,Urine Light-Yellow (Yellow); Glucose,Urine (UA) >=1000 mg/dL (Normal); Ketones,Urine Negative (Negative); Leukocyte Esterase,Urine Negative (Negative); Mucus,Urine Few per lpf (None-Few); Nitrite,Urine Negative (Negative); Protein,Urine 30 mg/dL (Neg-Trace); RBC,Urine 0-3 per hpf (0-3); Specific Gravity,Urine 1.011 (1.010-1.025); Squamous Epithelial Cell,Urine Few per hpf (None-Few); Urobilinogen,Urine Normal (Normal); WBC,Urine 0-3 per hpf (0-3)
[2020-10-15 22:22] LABS: Basophils % 0.2 %; Eosinophils # 0.1 K/mcL (0.0-0.6); Eosinophils % 2.2 %; Hematocrit 23.5 % (37.5-50.1); Hemoglobin 7.6 g/dL (12.9-16.9); Immature Granulocytes % 0.4 % (0-4); Lymphocytes # 0.6 K/mcL (0.6-4.6); Lymphocytes % 12.8 %; Mean Corpuscular HGB Conc 32.3 g/dL (31.6-35.5); Mean Corpuscular Volume 102.2 fL (83.0-100.0); Mean Platelet Volume 10.2 fL (9.4-12.4); Monocytes # 1.1 K/mcL (0.0-1.3); Neutrophils # 3.2 K/mcL (1.6-8.9); Platelet Count 142 K/mcL (140-400); Red Cell Distribution Width 17.4 % (11.5-14.5); Segmented Neutrophils % 63.4 %
[2020-10-15 22:38] LABS: Albumin 3.1 g/dL (3.5-5.7); Albumin/Globulin Ratio 0.9 (1.1-2.2); Bilirubin,Total 0.4 mg/dL (0.3-1.0); Calcium 8.1 mg/dL (8.6-10.3); Globulin 3.3 g/dL (2.4-3.5); Potassium 3.5 mEq/L (3.5-5.1); Total Protein 6.4 g/dL (6.4-8.9); Troponin I 0.03 ng/mL (< 0.04)
[2020-10-15 23:41] LABS: Platelet Estimate Normal (Normal)
[2020-10-16] MEDS ORDERED: Naloxone 0.4 MG/ML INJ IVP PRN (00:56)
[2020-10-16] MEDS ORDERED: Ondansetron 4 MG/2 ML VIAL IVP PRN (00:56)
[2020-10-16] MEDS ORDERED: Dextrose Gel 15 GM/37.5 ML TUBE PO PRN ×2 (00:59)
[2020-10-16] MEDS ORDERED: Perflutren Lipid Microsphere 1.3 ML in 0.9 % Sodium Chloride 8.7 ML IVP PRN (01:34)
[2020-10-16] MEDS ORDERED: Ipratropium/Albuterol Neb 3 ML IH PRN (01:35)
[2020-10-16] MEDS: *HR* HYDROcodone/Acet 5/325 mg TABLET GTUBE PRN ×2 (02:08→06:18)
[2020-10-16] MEDS: *HR* Dextrose 50 % in Water (Vial) 50 ML VIAL IVP PRN ×2 (05:11→07:10)
[2020-10-16] MEDS: Insulin LISPRO 300 UNITS/3 ML VIAL SUBQ SCH ×3 (05:20→15:31)
[2020-10-16 07:45] LABS: ABG Base Excess 11 mEq/L (-2 to 3); ABG HCO3 35 mEq/L (21-27); ABG Oxygen Saturation 97 % (95-98); ABG PCO2 45 mmHg (35-45); ABG PO2 86 mmHg (85-104); ABG TCO2 37 mEq/L (20-26)
[2020-10-16] MEDS ORDERED: levoFLOXacin 750 MG/150 ML 750 MG/150 ML BAG IVPB SCH (08:00)
[2020-10-16] MEDS ORDERED: Furosemide 20 MG/2 ML VIAL IVP SCH (09:00)
[2020-10-16] MEDS: D5% in Water 1,000 ML IVC PRN (10:04)
[2020-10-16] MEDS ORDERED: *HR* OxyCODONE/APAP 5/325 TABLET PO PRN (10:11)
[2020-10-16] MEDS: Metoclopramide 10 MG/10 ML UD.LIQ GTUBE SCH (16:07)
[2020-10-16] MEDS: *HR* OxyCODONE Oral Soln 5 MG/5 ML UD.LIQ GTUBE PRN ×2 (16:30→20:37)
[2020-10-16] MEDS ORDERED: Chloraseptic Spray 177 ML BOTTLE MM PRN (16:37)
[2020-10-16] MEDS ORDERED: Saliva Stimulant 44.3ml BOTTLE PO PRN (16:37)
[2020-10-16] MEDS ORDERED: GuaiFENesin Liq 200 MG/10 ML UDC GTUBE PRN (16:42)
[2020-10-16] MEDS ORDERED: OLANZapine 5 MG TAB.RAPDIS PO SCH (16:45)
[2020-10-16] MEDS: Docusate Oral Soln 100 MG/10 ML UDC GTUBE SCH (20:37)
[2020-10-16] MEDS: Gabapentin 300 MG CAPSULE GTUBE SCH (20:37)
[2020-10-17] MEDS: Metoclopramide 10 MG/10 ML UD.LIQ GTUBE SCH ×4 (00:07→23:51)
[2020-10-17] MEDS: Insulin LISPRO 300 UNITS/3 ML VIAL SUBQ SCH ×5 (00:09→23:48)
[2020-10-17] MEDS: *HR* OxyCODONE Oral Soln 5 MG/5 ML UD.LIQ GTUBE PRN ×5 (00:44→20:33)
[2020-10-17] MEDS: D5% in Water 1,000 ML IVC PRN (05:36)
[2020-10-17 06:33] LABS: Eosinophils # 0.1 K/mcL (0.0-0.6); Eosinophils % 3.4 %; Hematocrit 22.5 % (37.5-50.1); Hemoglobin 7.3 g/dL (12.9-16.9); Immature Granulocytes % 0.2 % (0-4); Immature Platelets 4.6 % (1.1-6.1); Lymphocytes # 0.2 K/mcL (0.6-4.6); Lymphocytes % 5.5 %; Mean Corpuscular HGB Conc 32.4 g/dL (31.6-35.5); Mean Corpuscular Hemoglobin 32.7 pg (28.0-33.3); Mean Corpuscular Volume 100.9 fL (83.0-100.0); Mean Platelet Volume 10.6 fL (9.4-12.4); Monocytes % 24.5 %; Neutrophils # 2.8 K/mcL (1.6-8.9); Platelet Count 126 K/mcL (140-400); Red Blood Count 2.23 M/mcL (4.19-5.50); Red Cell Distribution Width 17.8 % (11.5-14.5); Segmented Neutrophils % 66.4 %; White Blood Count 4.2 K/mcL (4.3-11.1)
[2020-10-17 06:50] LABS: Albumin 2.7 g/dL (3.5-5.7); Albumin/Globulin Ratio 0.9 (1.1-2.2); Bilirubin,Indirect 0.3 mg/dL (0.0-1.0); Bilirubin,Total 0.3 mg/dL (0.3-1.0); Total Protein 5.7 g/dL (6.4-8.9)
[2020-10-17 06:54] LABS: Calcium 7.5 mg/dL (8.6-10.3); Magnesium 1.1 mg/dL (1.6-2.6); Phosphorous 3.9 mg/dL (2.7-4.5); Potassium 3.4 mEq/L (3.5-5.1)
[2020-10-17 06:57] LABS: Anisocytosis 1+ (Not Present); Hypochromasia Present (Not Present); Platelet Estimate Slight Decrease (Normal)
[2020-10-17] MEDS: Docusate Oral Soln 100 MG/10 ML UDC GTUBE SCH ×2 (08:51→20:17)
[2020-10-17] MEDS: Cholecalciferol (D-3) 1,000 UNIT (25MCG) TABLET GTUBE SCH (08:54)
[2020-10-17] MEDS: Folic Acid 1 MG TABLET GTUBE SCH (08:54)
[2020-10-17] MEDS: allopurinoL 100 MG TABLET GTUBE SCH (08:54)
[2020-10-17] MEDS: Gabapentin 300 MG CAPSULE GTUBE SCH ×3 (08:54→20:17)
[2020-10-17] MEDS: Spironolactone 25 MG TABLET GTUBE SCH (08:55)
[2020-10-17] MEDS: Nicotine 21 MG PATCH.TD24 TD SCH (08:55)
[2020-10-17] MEDS: *HR* Dextrose 50 % in Water (Vial) 50 ML VIAL IVP PRN (10:11)
[2020-10-17] MEDS: OLANZapine 5 MG TAB.RAPDIS PO SCH (20:17)
[2020-10-18] MEDS: *HR* OxyCODONE Oral Soln 5 MG/5 ML UD.LIQ GTUBE PRN ×6 (00:34→22:36)
[2020-10-18] MEDS: Insulin LISPRO 300 UNITS/3 ML VIAL SUBQ SCH ×3 (05:41→18:28)
[2020-10-18 06:11] LABS: Albumin 2.7 g/dL (3.5-5.7); Albumin/Globulin Ratio 0.9 (1.1-2.2); Bilirubin,Direct 0.1 mg/dL (0.0-0.2); Bilirubin,Indirect 0.2 mg/dL (0.0-1.0); Bilirubin,Total 0.3 mg/dL (0.3-1.0); Total Protein 5.7 g/dL (6.4-8.9)
[2020-10-18] MEDS: Metoclopramide 10 MG/10 ML UD.LIQ GTUBE SCH ×2 (09:33→18:25)
[2020-10-18] MEDS: Piperacillin/Tazobactam 3.375 GM in 0.9 % Sodium Chloride Mini Bag 100 ML IVPB SCH ×2 (09:34→18:25)
[2020-10-18] MEDS: Furosemide 20 MG/2 ML VIAL IVP SCH (09:35)
[2020-10-18] MEDS: Folic Acid 1 MG TABLET GTUBE SCH (09:35)
[2020-10-18] MEDS: Docusate Oral Soln 100 MG/10 ML UDC GTUBE SCH ×2 (09:35→21:13)
[2020-10-18] MEDS: Spironolactone 25 MG TABLET GTUBE SCH (09:35)
[2020-10-18] MEDS: Nicotine 21 MG PATCH.TD24 TD SCH (09:36)
[2020-10-18] MEDS: Cholecalciferol (D-3) 1,000 UNIT (25MCG) TABLET GTUBE SCH (09:36)
[2020-10-18] MEDS: Gabapentin 300 MG CAPSULE GTUBE SCH ×3 (09:36→21:13)
[2020-10-18] MEDS: allopurinoL 100 MG TABLET GTUBE SCH (09:36)
[2020-10-18] MEDS: OLANZapine 5 MG TAB.RAPDIS PO SCH (21:14)
[2020-10-19] MEDS: Metoclopramide 10 MG/10 ML UD.LIQ GTUBE SCH ×4 (00:25→23:40)
[2020-10-19] MEDS: Insulin LISPRO 300 UNITS/3 ML VIAL SUBQ SCH ×5 (00:26→23:34)
[2020-10-19] MEDS: Piperacillin/Tazobactam 3.375 GM in 0.9 % Sodium Chloride Mini Bag 100 ML IVPB SCH ×4 (00:33→23:42)
[2020-10-19] MEDS: *HR* OxyCODONE Oral Soln 5 MG/5 ML UD.LIQ GTUBE PRN ×4 (03:55→22:03)
[2020-10-19 04:37] LABS: Eosinophils # 0.1 K/mcL (0.0-0.6); Eosinophils % 3.3 %; Hematocrit 22.9 % (37.5-50.1); Hemoglobin 7.4 g/dL (12.9-16.9); Immature Platelets 4.5 % (1.1-6.1); Lymphocytes # 0.5 K/mcL (0.6-4.6); Lymphocytes % 17.4 %; Mean Corpuscular HGB Conc 32.3 g/dL (31.6-35.5); Mean Corpuscular Hemoglobin 32.6 pg (28.0-33.3); Mean Corpuscular Volume 100.9 fL (83.0-100.0); Mean Platelet Volume 10.4 fL (9.4-12.4); Monocytes % 35.9 %; Neutrophils # 1.2 K/mcL (1.6-8.9); Red Blood Count 2.27 M/mcL (4.19-5.50); Red Cell Distribution Width 17.9 % (11.5-14.5); Segmented Neutrophils % 43.4 %; White Blood Count 2.8 K/mcL (4.3-11.1)
[2020-10-19 04:46] LABS: Platelet Count 94 K/mcL (140-400)
[2020-10-19 04:56] LABS: Calcium 7.8 mg/dL (8.6-10.3); Magnesium 1.6 mg/dL (1.6-2.6); Potassium 3.7 mEq/L (3.5-5.1)
[2020-10-19 05:25] LABS: Anisocytosis 1+ (Not Present); Platelet Estimate Slight Decrease (Normal)
[2020-10-19] MEDS: Nicotine 21 MG PATCH.TD24 TD SCH (09:40)
[2020-10-19] MEDS: Spironolactone 25 MG TABLET GTUBE SCH (09:41)
[2020-10-19] MEDS: Furosemide 20 MG/2 ML VIAL IVP SCH (09:41)
[2020-10-19] MEDS: Docusate Oral Soln 100 MG/10 ML UDC GTUBE SCH ×2 (09:41→20:37)
[2020-10-19] MEDS: Gabapentin 300 MG CAPSULE GTUBE SCH ×3 (09:41→20:37)
[2020-10-19] MEDS: Cholecalciferol (D-3) 1,000 UNIT (25MCG) TABLET GTUBE SCH (09:41)
[2020-10-19] MEDS: Folic Acid 1 MG TABLET GTUBE SCH (09:41)
[2020-10-19] MEDS: allopurinoL 100 MG TABLET GTUBE SCH (09:41)
[2020-10-19] MEDS: Thiamine (B-1) 100 MG TABLET GTUBE SCH (12:48)
[2020-10-19] MEDS: Multivitamin Liquid 15 ML UDC GTUBE SCH (12:48)
[2020-10-19] MEDS: OLANZapine 5 MG TAB.RAPDIS PO SCH (20:37)
[2020-10-19] MEDS: *HR* Dextrose 50 % in Water (Vial) 50 ML VIAL IVP PRN (23:36)
[2020-10-20] MEDS: *HR* OxyCODONE Oral Soln 5 MG/5 ML UD.LIQ GTUBE PRN ×5 (02:00→22:23)
[2020-10-20 02:09] LABS: Basophils % 0.3 %; Hemoglobin 7.1 g/dL (12.9-16.9); Immature Granulocytes % 0.3 % (0-4)
[2020-10-20 02:11] LABS: Eosinophils # 0.1 K/mcL (0.0-0.6); Eosinophils % 3.1 %; Hematocrit 21.6 % (37.5-50.1); Immature Platelets 3.3 % (1.1-6.1); Lymphocytes # 0.5 K/mcL (0.6-4.6); Lymphocytes % 16.5 %; Mean Corpuscular HGB Conc 32.9 g/dL (31.6-35.5); Mean Corpuscular Hemoglobin 33.5 pg (28.0-33.3); Mean Corpuscular Volume 101.9 fL (83.0-100.0); Mean Platelet Volume 10.7 fL (9.4-12.4); Monocytes # 0.8 K/mcL (0.0-1.3); Monocytes % 22.9 %; Neutrophils # 1.9 K/mcL (1.6-8.9); Red Blood Count 2.12 M/mcL (4.19-5.50); Red Cell Distribution Width 17.7 % (11.5-14.5); Segmented Neutrophils % 56.9 %; White Blood Count 3.3 K/mcL (4.3-11.1)
[2020-10-20 02:13] LABS: Platelet Count 96 K/mcL (140-400)
[2020-10-20 02:29] LABS: Calcium 7.5 mg/dL (8.6-10.3); Magnesium 1.4 mg/dL (1.6-2.6); Potassium 3.5 mEq/L (3.5-5.1)
[2020-10-20] MEDS: Insulin LISPRO 300 UNITS/3 ML VIAL SUBQ SCH ×5 (05:49→18:27)
[2020-10-20] MEDS: Spironolactone 25 MG TABLET GTUBE SCH (09:07)
[2020-10-20] MEDS: allopurinoL 100 MG TABLET GTUBE SCH (09:07)
[2020-10-20] MEDS: Metoclopramide 10 MG/10 ML UD.LIQ GTUBE SCH ×2 (09:07→15:55)
[2020-10-20] MEDS: Multivitamin Liquid 15 ML UDC GTUBE SCH (09:07)
[2020-10-20] MEDS: Furosemide 20 MG/2 ML VIAL IVP SCH (09:07)
[2020-10-20] MEDS: Gabapentin 300 MG CAPSULE GTUBE SCH ×3 (09:07→20:42)
[2020-10-20] MEDS: Thiamine (B-1) 100 MG TABLET GTUBE SCH (09:07)
[2020-10-20] MEDS: Folic Acid 1 MG TABLET GTUBE SCH (09:07)
[2020-10-20] MEDS: Piperacillin/Tazobactam 3.375 GM in 0.9 % Sodium Chloride Mini Bag 100 ML IVPB SCH ×2 (09:08→18:11)
[2020-10-20] MEDS: Docusate Oral Soln 100 MG/10 ML UDC GTUBE SCH ×2 (09:08→20:42)
[2020-10-20] MEDS: Nicotine 21 MG PATCH.TD24 TD SCH (09:09)
[2020-10-20] MEDS: Cholecalciferol (D-3) 1,000 UNIT (25MCG) TABLET GTUBE SCH (09:10)
[2020-10-20] MEDS ORDERED: 0.9 % Sodium Chloride 250 ML ONE (13:33)
[2020-10-20] MEDS ORDERED: Furosemide 20 MG/2 ML VIAL IVP ONE (16:15)
[2020-10-20] MEDS: OLANZapine 5 MG TAB.RAPDIS PO SCH (20:42)
[2020-10-21] MEDS: Metoclopramide 10 MG/10 ML UD.LIQ GTUBE SCH ×2 (00:26→07:55)
[2020-10-21] MEDS: Insulin LISPRO 300 UNITS/3 ML VIAL SUBQ SCH ×3 (00:26→12:31)
[2020-10-21] MEDS: Piperacillin/Tazobactam 3.375 GM in 0.9 % Sodium Chloride Mini Bag 100 ML IVPB SCH ×2 (00:27→08:07)
[2020-10-21] MEDS: *HR* OxyCODONE Oral Soln 5 MG/5 ML UD.LIQ GTUBE PRN ×3 (04:11→12:37)
[2020-10-21 04:44] LABS: Immature Granulocytes % 0.3 % (0-4); Mean Corpuscular Hemoglobin 32.6 pg (28.0-33.3)
[2020-10-21 04:46] LABS: Eosinophils # 0.1 K/mcL (0.0-0.6); Eosinophils % 3.1 %; Hematocrit 25.7 % (37.5-50.1); Hemoglobin 8.6 g/dL (12.9-16.9); Immature Platelets 4.6 % (1.1-6.1); Lymphocytes # 0.8 K/mcL (0.6-4.6); Mean Corpuscular HGB Conc 33.5 g/dL (31.6-35.5); Mean Corpuscular Volume 97.3 fL (83.0-100.0); Mean Platelet Volume 10.4 fL (9.4-12.4); Monocytes % 30.5 %; Neutrophils # 1.4 K/mcL (1.6-8.9); Platelet Count 103 K/mcL (140-400); Red Blood Count 2.64 M/mcL (4.19-5.50); Red Cell Distribution Width 17.1 % (11.5-14.5); Segmented Neutrophils % 42.1 %; White Blood Count 3.3 K/mcL (4.3-11.1)
[2020-10-21 05:01] LABS: BUN/Creatinine Ratio 17 (6-26); Blood Urea Nitrogen 24 mg/dL (6-20); Carbon Dioxide 32 mEq/L (23-29); Chloride 92 mEq/L (98-107); Glucose 209 mg/dL (70-105); Magnesium 1.3 mg/dL (1.6-2.6); Osmolality,Calculated 284 (280-300); Potassium 4.3 mEq/L (3.5-5.1); Sodium 132 mEq/L (136-145); eGFR For African Americans > 60 (> 60); eGFR For Non-African Americans 51 (> 60)
[2020-10-21 05:19] LABS: Anisocytosis 1+ (Not Present); Platelet Estimate Slight Decrease (Normal); Reactive Lymphocytes Present (Not Present)
[2020-10-21] MEDS: allopurinoL 100 MG TABLET GTUBE SCH (07:53)
[2020-10-21] MEDS: Cholecalciferol (D-3) 1,000 UNIT (25MCG) TABLET GTUBE SCH (07:54)
[2020-10-21] MEDS: Folic Acid 1 MG TABLET GTUBE SCH (07:54)
[2020-10-21] MEDS: Thiamine (B-1) 100 MG TABLET GTUBE SCH (07:55)
[2020-10-21] MEDS: Spironolactone 25 MG TABLET GTUBE SCH (07:55)
[2020-10-21] MEDS: Docusate Oral Soln 100 MG/10 ML UDC GTUBE SCH (07:55)
[2020-10-21] MEDS: Gabapentin 300 MG CAPSULE GTUBE SCH (07:55)
[2020-10-21] MEDS: Nicotine 21 MG PATCH.TD24 TD SCH (07:55)
[2020-10-21] MEDS: Furosemide 20 MG/2 ML VIAL IVP SCH (07:56)
[2020-10-21] MEDS: Multivitamin Liquid 15 ML UDC GTUBE SCH (07:57)
[2020-10-21 11:10] VITALS: BP 115/77
== END 2020-10-21 14:44 | disposition home health service (06) ==
LOC: EMEROOARM 19:55 → 2ANU 19:55 → SUATTDRO 10-16 01:02 → 2ANU 10-16 01:41
PROVIDERS: ADMIT Student in an Organized Health Care Education/Training Program; ATTEND Internal Medicine

== ENCOUNTER 2021-03-28 17:25 | Observation (INO) ==
[2021-03-28] MEDS ORDERED: *HR* Dextrose 50 % in Water (Vial) 50 ML VIAL IVP PRN (22:42)
[2021-03-28] MEDS ORDERED: Insulin Regular, Human 100 UNIT/ML IV PRN ×2 (22:42→23:39)
[2021-03-28] MEDS ORDERED: 0.45 % Sodium Chloride w/KCl 20 MEQ/1,000 ML MLS IVC SCH (22:45)
[2021-03-28] MEDS: D5% in 0.45% NACL w KCl 20 MEQ/1,000 ML MLS IVC SCH (22:57)
[2021-03-28 23:08] LABS: Basophils % 0.2 %; Eosinophils % 0.1 %; Hemoglobin 8.4 g/dL (12.9-16.9); Immature Granulocytes % 0.7 % (0-4); Lymphocytes # 0.5 K/mcL (0.6-4.6); Lymphocytes % 5.2 %; Mean Corpuscular Hemoglobin 34.6 pg (28.0-33.3); Mean Corpuscular Volume 98.8 fL (83.0-100.0); Mean Platelet Volume 9.1 fL (9.4-12.4); Monocytes % 10.9 %; Neutrophils # 7.8 K/mcL (1.6-8.9); Platelet Count 156 K/mcL (140-400); Red Blood Count 2.43 M/mcL (4.19-5.50); Red Cell Distribution Width 12.7 % (11.5-14.5); Segmented Neutrophils % 82.9 %; White Blood Count 9.4 K/mcL (4.3-11.1)
[2021-03-28 23:30] LABS: Calcium 8.8 mg/dL (8.6-10.3); Potassium 3.2 mEq/L (3.5-5.1)
[2021-03-28 23:35] LABS: Estimated Average Glucose 384 mg/dl
[2021-03-28 23:36] LABS: VBG HCO3 22 mEq/L (21-27); VBG PCO2 47 mmHg (41-51); VBG PH 7.28 pH Units (7.32-7.42); VBG PO2 53 mmHg (25-50)
[2021-03-29] MEDS ORDERED: Naloxone 0.4 MG/ML INJ IVP PRN (00:24)
[2021-03-29] MEDS ORDERED: *HR* OxyCODONE Immed Rel 5 MG TABLET PO PRN (00:27)
[2021-03-29] MEDS ORDERED: Potassium Chloride 20 MEQ, Lidocaine 1% 2 ML in 0.9 % Sodium Chloride 250 ML IVPB ONE (01:30)
[2021-03-29] MEDS ORDERED: Saliva Stimulant 44.3ml BOTTLE PO PRN (01:32)
[2021-03-29] MEDS ORDERED: *HR* LORazepam 2 MG/ML VIAL IVP PRN ×3 (01:45)
[2021-03-29] MEDS: D5% in 0.45% NACL w KCl 20 MEQ/1,000 ML MLS IVC SCH ×2 (02:12→05:54)
[2021-03-29 02:14] LABS: Thyroid Stimulating Hormone 45.416 mcIU/mL (0.340-5.600)
[2021-03-29 02:16] LABS: Triiodothyronine (T3) Free 2.57 pg/mL (2.50-3.90)
[2021-03-29 02:53] LABS: VBG HCO3 20 mEq/L (21-27); VBG PCO2 34 mmHg (41-51); VBG PH 7.39 pH Units (7.32-7.42); VBG PO2 109 mmHg (25-50)
[2021-03-29 02:58] LABS: Calcium 8.1 mg/dL (8.6-10.3); Potassium 3.8 mEq/L (3.5-5.1)
[2021-03-29 03:49] LABS: Amphetamine Screen,Urine Negative ng/mL (Cutoff=1000); Barbiturate Screen,Urine Negative ng/mL (Cutoff=200); Benzodiazepines Screen,Urine Negative ng/mL (Cutoff=200); Cannabinoid Screen,Urine Negative ng/mL (Cutoff = 50); Cocaine Screen,Urine Negative ng/mL (Cutoff= 300); Opiate Screen,Urine Positive ng/mL (Cutoff=300); Phencyclidine Screen,Urine Negative ng/mL (Cutoff=25)
[2021-03-29 04:03] VITALS: PULSE 78
[2021-03-29] MEDS ORDERED: *HR* Heparin 5,000 UNIT/ML VIAL SQ SCH (06:00)
[2021-03-29 07:09] LABS: VBG HCO3 23 mEq/L (21-27); VBG PCO2 40 mmHg (41-51); VBG PH 7.36 pH Units (7.32-7.42); VBG PO2 198 mmHg (25-50)
[2021-03-29 07:37] LABS: BUN/Creatinine Ratio 16 (6-26); Blood Urea Nitrogen 24 mg/dL (6-20); Calcium 8.1 mg/dL (8.6-10.3); Carbon Dioxide 23 mEq/L (23-29); Chloride 101 mEq/L (98-107); Glucose 177 mg/dL (70-105); Osmolality,Calculated 282 (280-300); Potassium 3.5 mEq/L (3.5-5.1); Sodium 132 mEq/L (136-145); eGFR For African Americans > 60 (> 60); eGFR For Non-African Americans 50 (> 60)
[2021-03-29 07:39] VITALS: TEMP 98
[2021-03-29] MEDS ORDERED: Insulin DETEMIR 100 UNIT/ML X5UNITS SUBQ ONE (08:32)
[2021-03-29] MEDS ORDERED: Dextrose Gel 15 GM/37.5 ML TUBE PO PRN ×2 (09:41)
[2021-03-29] MEDS ORDERED: D5% in Water 1,000 ML IVC PRN (09:41)
[2021-03-29] MEDS ORDERED: *HR* Dextrose 50 % in Water (Vial) 50 ML VIAL IVP PRN (09:41)
[2021-03-29] MEDS ORDERED: Insulin LISPRO 300 UNITS/3 ML VIAL SUBQ SCH (11:30)
[2021-03-29 11:41] VITALS: O2SAT 94
[2021-03-29 11:43] VITALS: BP 127/87
== END 2021-03-29 17:37 | disposition home health service (06) ==
LOC: 2NNU → SUATTDRO 21:42
PROVIDERS: ADMIT Internal Medicine; ATTEND Student in an Organized Health Care Education/Training Program

== ENCOUNTER 2021-06-05 01:23 | Inpatient (IN) ==
[2021-06-05] MEDS ORDERED: Naloxone 0.4 MG/ML INJ IVP PRN (09:27)
[2021-06-05] MEDS ORDERED: Ondansetron 4 MG/2 ML VIAL IVP PRN (09:27)
[2021-06-05] MEDS ORDERED: Dextrose Gel 15 GM/37.5 ML TUBE PO PRN ×2 (09:33)
[2021-06-05] MEDS ORDERED: D5% in Water 1,000 ML IVC PRN (09:33)
[2021-06-05] MEDS ORDERED: *HR* Dextrose 50 % in Water (Syg) 50 ML SYRINGE IVP PRN (09:33)
[2021-06-05] MEDS: Insulin LISPRO 300 UNITS/3 ML VIAL SUBQ SCH ×3 (09:51→20:09)
[2021-06-05] MEDS: Cefepime HCl 2,000 MG in Water for inj. (sterile) 20 ML IVP SCH ×2 (09:54→16:19)
[2021-06-05 10:11] LABS: Hematocrit 26.3 % (37.5-50.1); Hemoglobin 8.8 g/dL (12.9-16.9); Mean Corpuscular HGB Conc 33.5 g/dL (31.6-35.5); Mean Corpuscular Hemoglobin 33.6 pg (28.0-33.3); Mean Corpuscular Volume 100.4 fL (83.0-100.0); Mean Platelet Volume 9.7 fL (9.4-12.4); Platelet Count 164 K/mcL (140-400); Red Blood Count 2.62 M/mcL (4.19-5.50); White Blood Count 24.5 K/mcL (4.3-11.1)
[2021-06-05 10:21] LABS: INR 1.1; Prothrombin Time 12.6 Seconds (9.4-12.1)
[2021-06-05 10:31] LABS: Magnesium 1.7 mg/dL (1.6-2.6); Phosphorous 3.5 mg/dL (2.7-4.5)
[2021-06-05 10:32] LABS: BUN/Creatinine Ratio 15 (6-26); Blood Urea Nitrogen 18 mg/dL (6-20); Calcium 8.8 mg/dL (8.6-10.3); Carbon Dioxide 26 mEq/L (23-29); Chloride 91 mEq/L (98-107); Glucose 240 mg/dL (70-105); Osmolality,Calculated 270 (280-300); Potassium 4.9 mEq/L (3.5-5.1); Sodium 125 mEq/L (136-145); eGFR For African Americans > 60 (> 60); eGFR For Non-African Americans > 60 (> 60)
[2021-06-05 10:39] LABS: Lymphocytes # 0.5 K/mcL (0.6-4.6); Monocytes # 1.5 K/mcL (0.0-1.3); Neutrophils # 22.5 K/mcL (1.6-8.9); Platelet Estimate Normal (Normal)
[2021-06-05 10:55] LABS: Estimated Average Glucose 324 mg/dl; Hemoglobin A1C 12.9 %
[2021-06-05] MEDS: Nicotine 7 MG PATCH.TD24 TD SCH (11:30)
[2021-06-06] MEDS: Cefepime HCl 2,000 MG in Water for inj. (sterile) 20 ML IVP SCH ×3 (00:17→17:31)
[2021-06-06 01:16] LABS: Basophils % 0.2 %; Eosinophils # 0.1 K/mcL (0.0-0.6); Eosinophils % 0.7 %; Hematocrit 24.4 % (37.5-50.1); Hemoglobin 8.4 g/dL (12.9-16.9); Immature Granulocytes % 0.5 % (0-4); Lymphocytes # 0.9 K/mcL (0.6-4.6); Lymphocytes % 4.6 %; Mean Corpuscular HGB Conc 34.4 g/dL (31.6-35.5); Mean Corpuscular Hemoglobin 34.4 pg (28.0-33.3); Mean Platelet Volume 9.8 fL (9.4-12.4); Monocytes # 1.3 K/mcL (0.0-1.3); Monocytes % 6.6 %; Neutrophils # 16.9 K/mcL (1.6-8.9); Platelet Count 161 K/mcL (140-400); Red Blood Count 2.44 M/mcL (4.19-5.50); Segmented Neutrophils % 87.4 %; White Blood Count 19.3 K/mcL (4.3-11.1)
[2021-06-06 01:22] LABS: BUN/Creatinine Ratio 15 (6-26); Blood Urea Nitrogen 22 mg/dL (6-20); Calcium 8.7 mg/dL (8.6-10.3); Carbon Dioxide 25 mEq/L (23-29); Chloride 91 mEq/L (98-107); Glucose 297 mg/dL (70-105); Magnesium 1.8 mg/dL (1.6-2.6); Osmolality,Calculated 272 (280-300); Phosphorous 2.6 mg/dL (2.7-4.5); Potassium 4.3 mEq/L (3.5-5.1); Sodium 124 mEq/L (136-145); eGFR For African Americans > 60 (> 60); eGFR For Non-African Americans 52 (> 60)
[2021-06-06] MEDS: *HR* Enoxaparin 40 MG/0.4 ML SYRINGE SQ SCH (05:03)
[2021-06-06] MEDS: Nicotine 7 MG PATCH.TD24 TD SCH (08:31)
[2021-06-06] MEDS: Insulin LISPRO 300 UNITS/3 ML VIAL SUBQ SCH ×4 (08:32→19:59)
[2021-06-06 10:03] LABS: Bilirubin,Urine Negative (Negative); Blood,Urine Negative (Negative); Clarity,Urine Clear (Clear); Color,Urine Colorless (Yellow); Glucose,Urine (UA) >=1000 mg/dL (Normal); Ketones,Urine 10 mg/dL (Negative); Leukocyte Esterase,Urine Negative (Negative); Mucus,Urine Few per lpf (None-Few); Nitrite,Urine Negative (Negative); Protein,Urine Negative (Neg-Trace); Specific Gravity,Urine 1.016 (1.010-1.025); Squamous Epithelial Cell,Urine Few per hpf (None-Few); Urobilinogen,Urine Normal (Normal); WBC,Urine 0-3 per hpf (0-3)
[2021-06-06 11:09] LABS: Sodium, Urine 21.3 mEq/L
[2021-06-06] MEDS ORDERED: 0.9 % Sodium Chloride 500 ML IVC SCH (15:30)
[2021-06-06] MEDS ORDERED: Ibuprofen 600 MG TABLET PO PRN (16:07)
[2021-06-06] MEDS ORDERED: Saliva Stimulant 44.3ml BOTTLE PO PRN (16:07)
[2021-06-06] MEDS ORDERED: OXYCODONE HCL 5 MG GTUBE PRN (16:07)
[2021-06-06] MEDS ORDERED: Cholecalciferol (D-3) 1,000 UNIT (25MCG) TABLET GTUBE SCH (16:15)
[2021-06-06 17:08] LABS: Potassium 4.4 mEq/L (3.5-5.1)
[2021-06-06] MEDS: Cholecalciferol (D-3) 1,000 UNIT (25MCG) TABLET PO SCH (17:32)
[2021-06-06] MEDS: Doxycycline 100 MG in 0.9 % Sodium Chloride Mini Bag 100 ML IVPB SCH (17:32)
[2021-06-06] MEDS ORDERED: 0.9 % Sodium Chloride 1,000 ML IVC SCH (22:15)
[2021-06-07 01:17] LABS: Hematocrit 23.3 % (37.5-50.1); Hemoglobin 7.8 g/dL (12.9-16.9); Mean Corpuscular HGB Conc 33.5 g/dL (31.6-35.5); Mean Corpuscular Hemoglobin 34.1 pg (28.0-33.3); Mean Corpuscular Volume 101.7 fL (83.0-100.0); Mean Platelet Volume 9.8 fL (9.4-12.4); Platelet Count 140 K/mcL (140-400); Red Blood Count 2.29 M/mcL (4.19-5.50); Red Cell Distribution Width 13.2 % (11.5-14.5); White Blood Count 16.3 K/mcL (4.3-11.1)
[2021-06-07] MEDS: Piperacillin/Tazobactam 3.375 GM in 0.9 % Sodium Chloride Mini Bag 100 ML IVPB SCH ×3 (01:28→17:47)
[2021-06-07 01:36] LABS: BUN/Creatinine Ratio 16 (6-26); Blood Urea Nitrogen 20 mg/dL (6-20); Calcium 8.9 mg/dL (8.6-10.3); Carbon Dioxide 24 mEq/L (23-29); Chloride 94 mEq/L (98-107); Glucose 158 mg/dL (70-105); Osmolality,Calculated 266 (280-300); Potassium 4.2 mEq/L (3.5-5.1); Sodium 125 mEq/L (136-145); eGFR For African Americans > 60 (> 60); eGFR For Non-African Americans > 60 (> 60)
[2021-06-07] MEDS: Doxycycline 100 MG in 0.9 % Sodium Chloride Mini Bag 100 ML IVPB SCH ×2 (06:29→17:47)
[2021-06-07] MEDS: *HR* Enoxaparin 40 MG/0.4 ML SYRINGE SQ SCH (06:29)
[2021-06-07] MEDS: Insulin LISPRO 300 UNITS/3 ML VIAL SUBQ SCH ×4 (07:15→20:04)
[2021-06-07] MEDS: Cholecalciferol (D-3) 1,000 UNIT (25MCG) TABLET PO SCH (07:15)
[2021-06-07] MEDS: Gabapentin 300 MG CAPSULE GTUBE SCH ×3 (07:15→20:04)
[2021-06-07] MEDS: Nicotine 7 MG PATCH.TD24 TD SCH (08:14)
[2021-06-07] MEDS ORDERED: Insulin DETEMIR 100 UNIT/ML X5UNITS SUBQ SCH (21:00)
[2021-06-08] MEDS: Piperacillin/Tazobactam 3.375 GM in 0.9 % Sodium Chloride Mini Bag 100 ML IVPB SCH ×3 (02:13→15:29)
[2021-06-08] MEDS: *HR* Enoxaparin 40 MG/0.4 ML SYRINGE SQ SCH (05:42)
[2021-06-08] MEDS: Doxycycline 100 MG in 0.9 % Sodium Chloride Mini Bag 100 ML IVPB SCH ×2 (05:42→17:35)
[2021-06-08 06:38] LABS: Hematocrit 22.4 % (37.5-50.1); Hemoglobin 7.2 g/dL (12.9-16.9); Mean Corpuscular HGB Conc 32.1 g/dL (31.6-35.5); Mean Corpuscular Volume 102.8 fL (83.0-100.0); Mean Platelet Volume 9.6 fL (9.4-12.4); Platelet Count 122 K/mcL (140-400); Red Blood Count 2.18 M/mcL (4.19-5.50); Red Cell Distribution Width 13.2 % (11.5-14.5)
[2021-06-08 06:39] LABS: White Blood Count 6.9 K/mcL (4.3-11.1)
[2021-06-08] MEDS: Cholecalciferol (D-3) 1,000 UNIT (25MCG) TABLET PO SCH (07:34)
[2021-06-08] MEDS: Gabapentin 300 MG CAPSULE GTUBE SCH ×3 (07:35→20:39)
[2021-06-08] MEDS: Nicotine 7 MG PATCH.TD24 TD SCH (07:36)
[2021-06-08] MEDS: Insulin LISPRO 300 UNITS/3 ML VIAL SUBQ SCH ×5 (07:38→20:46)
[2021-06-08 07:47] LABS: BUN/Creatinine Ratio 13 (6-26); Blood Urea Nitrogen 16 mg/dL (6-20); Calcium 9.3 mg/dL (8.6-10.3); Carbon Dioxide 26 mEq/L (23-29); Chloride 99 mEq/L (98-107); Glucose 30 mg/dL (70-105); Osmolality,Calculated 269 (280-300); Potassium 3.7 mEq/L (3.5-5.1); Sodium 131 mEq/L (136-145); eGFR For African Americans > 60 (> 60); eGFR For Non-African Americans > 60 (> 60)
[2021-06-08 13:30] LABS: Folate 10.8 ng/mL (3.0-16.0)
[2021-06-08 14:00] LABS: Iron 26 mcg/dL (65-175)
[2021-06-08] MEDS ORDERED: E-Z-PAQUE (BARIUM SULF) SUSP 1 BOTTLE PO ONE (14:18)
[2021-06-08] MEDS ORDERED: E-Z-HD (BARIUM SULF) SUSPENSION PO ONE (14:18)
[2021-06-09] MEDS: Piperacillin/Tazobactam 3.375 GM in 0.9 % Sodium Chloride Mini Bag 100 ML IVPB SCH ×3 (01:37→19:21)
[2021-06-09 04:43] LABS: Hemoglobin 7.7 g/dL (12.9-16.9); Mean Corpuscular HGB Conc 32.1 g/dL (31.6-35.5); Mean Corpuscular Hemoglobin 33.3 pg (28.0-33.3); Mean Corpuscular Volume 103.9 fL (83.0-100.0); Mean Platelet Volume 9.7 fL (9.4-12.4); Platelet Count 122 K/mcL (140-400); Red Blood Count 2.31 M/mcL (4.19-5.50); Red Cell Distribution Width 13.2 % (11.5-14.5); White Blood Count 6.2 K/mcL (4.3-11.1)
[2021-06-09 04:45] LABS: BUN/Creatinine Ratio 12 (6-26); Blood Urea Nitrogen 15 mg/dL (6-20); Calcium 9.6 mg/dL (8.6-10.3); Carbon Dioxide 26 mEq/L (23-29); Chloride 99 mEq/L (98-107); Glucose 182 mg/dL (70-105); Osmolality,Calculated 279 (280-300); Potassium 3.8 mEq/L (3.5-5.1); Sodium 132 mEq/L (136-145); eGFR For African Americans > 60 (> 60); eGFR For Non-African Americans > 60 (> 60)
[2021-06-09 04:54] LABS: Magnesium 1.4 mg/dL (1.6-2.6); Phosphorous 3.6 mg/dL (2.7-4.5)
[2021-06-09 05:08] LABS: Thyroid Stimulating Hormone 45.393 mcIU/mL (0.340-5.600)
[2021-06-09] MEDS: Doxycycline 100 MG in 0.9 % Sodium Chloride Mini Bag 100 ML IVPB SCH ×2 (05:40→18:02)
[2021-06-09] MEDS: *HR* Enoxaparin 40 MG/0.4 ML SYRINGE SQ SCH (05:41)
[2021-06-09] MEDS: Gabapentin 300 MG CAPSULE GTUBE SCH ×3 (09:45→21:20)
[2021-06-09] MEDS: Cholecalciferol (D-3) 1,000 UNIT (25MCG) TABLET PO SCH (09:45)
[2021-06-09] MEDS: Insulin LISPRO 300 UNITS/3 ML VIAL SUBQ SCH ×6 (09:46→21:08)
[2021-06-09] MEDS ORDERED: Isovue-370 500 ML BOTTLE IVP ONE (10:14)
[2021-06-09] MEDS: Nicotine 7 MG PATCH.TD24 TD SCH (12:44)
[2021-06-09] MEDS: Cefepime HCl 2,000 MG in Water for inj. (sterile) 20 ML IVP SCH (19:41)
[2021-06-09] MEDS ORDERED: Insulin DETEMIR 100 UNIT/ML X5UNITS SUBQ SCH (21:00)
[2021-06-10] MEDS: Piperacillin/Tazobactam 3.375 GM in 0.9 % Sodium Chloride Mini Bag 100 ML IVPB SCH ×3 (03:09→21:06)
[2021-06-10 05:04] LABS: Hematocrit 23.4 % (37.5-50.1); Hemoglobin 7.7 g/dL (12.9-16.9); Mean Corpuscular HGB Conc 32.9 g/dL (31.6-35.5); Mean Corpuscular Hemoglobin 34.1 pg (28.0-33.3); Mean Corpuscular Volume 103.5 fL (83.0-100.0); Mean Platelet Volume 9.6 fL (9.4-12.4); Platelet Count 121 K/mcL (140-400); Red Blood Count 2.26 M/mcL (4.19-5.50); Red Cell Distribution Width 13.2 % (11.5-14.5); White Blood Count 6.3 K/mcL (4.3-11.1)
[2021-06-10 05:26] LABS: BUN/Creatinine Ratio 12 (6-26); Blood Urea Nitrogen 14 mg/dL (6-20); Calcium 9.4 mg/dL (8.6-10.3); Carbon Dioxide 24 mEq/L (23-29); Chloride 97 mEq/L (98-107); Glucose 349 mg/dL (70-105); Osmolality,Calculated 282 (280-300); Sodium 129 mEq/L (136-145); eGFR For African Americans > 60 (> 60); eGFR For Non-African Americans > 60 (> 60)
[2021-06-10] MEDS: *HR* Enoxaparin 40 MG/0.4 ML SYRINGE SQ SCH (07:13)
[2021-06-10] MEDS: Doxycycline 100 MG in 0.9 % Sodium Chloride Mini Bag 100 ML IVPB SCH ×2 (07:15→17:25)
[2021-06-10] MEDS: Nicotine 7 MG PATCH.TD24 TD SCH ×2 (07:27→07:42)
[2021-06-10] MEDS: Cholecalciferol (D-3) 1,000 UNIT (25MCG) TABLET PO SCH (07:27)
[2021-06-10] MEDS: Gabapentin 300 MG CAPSULE GTUBE SCH ×2 (07:27→15:20)
[2021-06-10] MEDS: Insulin LISPRO 300 UNITS/3 ML VIAL SUBQ SCH ×4 (07:28→21:15)
[2021-06-10] MEDS: Fluconazole 200 MG/100 ML 200 MG/100 ML BAG IVPB SCH (11:22)
[2021-06-10] MEDS: Gabapentin 300 MG CAPSULE PO SCH (21:06)
[2021-06-11 01:35] LABS: Hematocrit 22.5 % (37.5-50.1); Mean Corpuscular HGB Conc 31.1 g/dL (31.6-35.5); Mean Corpuscular Hemoglobin 32.6 pg (28.0-33.3); Mean Corpuscular Volume 104.7 fL (83.0-100.0); Mean Platelet Volume 9.5 fL (9.4-12.4); Platelet Count 113 K/mcL (140-400); Red Blood Count 2.15 M/mcL (4.19-5.50); Red Cell Distribution Width 13.1 % (11.5-14.5); White Blood Count 4.1 K/mcL (4.3-11.1)
[2021-06-11 01:56] LABS: BUN/Creatinine Ratio 11 (6-26); Blood Urea Nitrogen 15 mg/dL (6-20); Calcium 9.5 mg/dL (8.6-10.3); Carbon Dioxide 28 mEq/L (23-29); Chloride 100 mEq/L (98-107); Glucose 216 mg/dL (70-105); Osmolality,Calculated 287 (280-300); Potassium 4.2 mEq/L (3.5-5.1); Sodium 135 mEq/L (136-145); eGFR For African Americans > 60 (> 60); eGFR For Non-African Americans 52 (> 60)
[2021-06-11] MEDS: Piperacillin/Tazobactam 3.375 GM in 0.9 % Sodium Chloride Mini Bag 100 ML IVPB SCH ×3 (03:29→20:22)
[2021-06-11] MEDS: *HR* Enoxaparin 40 MG/0.4 ML SYRINGE SQ SCH (05:13)
[2021-06-11] MEDS: Doxycycline 100 MG in 0.9 % Sodium Chloride Mini Bag 100 ML IVPB SCH ×2 (07:52→17:38)
[2021-06-11] MEDS: Fluconazole 200 MG/100 ML 200 MG/100 ML BAG IVPB SCH (07:53)
[2021-06-11] MEDS: Gabapentin 300 MG CAPSULE PO SCH ×3 (07:53→20:23)
[2021-06-11] MEDS: Cholecalciferol (D-3) 1,000 UNIT (25MCG) TABLET PO SCH (07:53)
[2021-06-11] MEDS: Insulin LISPRO 300 UNITS/3 ML VIAL SUBQ SCH ×4 (07:54→20:23)
[2021-06-11] MEDS: Nicotine 7 MG PATCH.TD24 TD SCH (07:54)
[2021-06-11 11:01] LABS: Basophils % 0.2 %; Eosinophils # 0.2 K/mcL (0.0-0.6); Eosinophils % 3.8 %; Hemoglobin 7.5 g/dL (12.9-16.9); Immature Granulocytes % 0.4 % (0-4); Lymphocytes # 0.9 K/mcL (0.6-4.6); Lymphocytes % 17.2 %; Mean Corpuscular HGB Conc 32.6 g/dL (31.6-35.5); Mean Corpuscular Hemoglobin 34.4 pg (28.0-33.3); Mean Corpuscular Volume 105.5 fL (83.0-100.0); Mean Platelet Volume 9.1 fL (9.4-12.4); Monocytes # 0.6 K/mcL (0.0-1.3); Monocytes % 10.8 %; Neutrophils # 3.6 K/mcL (1.6-8.9); Platelet Count 120 K/mcL (140-400); Red Blood Count 2.18 M/mcL (4.19-5.50); Red Cell Distribution Width 13.2 % (11.5-14.5); Segmented Neutrophils % 67.6 %; White Blood Count 5.3 K/mcL (4.3-11.1)
[2021-06-11] MEDS: 0.9 % Sodium Chloride 1,000 ML IVC SCH (15:13)
[2021-06-12 03:19] LABS: Hematocrit 27.9 % (37.5-50.1); Hemoglobin 8.5 g/dL (12.9-16.9); Mean Corpuscular HGB Conc 30.5 g/dL (31.6-35.5); Mean Corpuscular Hemoglobin 32.2 pg (28.0-33.3); Mean Corpuscular Volume 105.7 fL (83.0-100.0); Mean Platelet Volume 9.8 fL (9.4-12.4); Platelet Count 156 K/mcL (140-400); Red Blood Count 2.64 M/mcL (4.19-5.50); Red Cell Distribution Width 13.1 % (11.5-14.5)
[2021-06-12 03:20] LABS: White Blood Count 9.3 K/mcL (4.3-11.1)
[2021-06-12 03:47] LABS: Calcium 9.9 mg/dL (8.6-10.3); Potassium 4.8 mEq/L (3.5-5.1)
[2021-06-12] MEDS: Piperacillin/Tazobactam 3.375 GM in 0.9 % Sodium Chloride Mini Bag 100 ML IVPB SCH ×3 (03:47→20:42)
[2021-06-12] MEDS ORDERED: Insulin Human Regular 10 UNIT in 0.9 % Sodium Chloride 10 ML IV ONE (04:06)
[2021-06-12] MEDS ORDERED: Insulin LISPRO 300 UNITS/3 ML VIAL SUBQ ONE (04:09)
[2021-06-12] MEDS ORDERED: 0.9 % Sodium Chloride 1,000 ML IVC SCH ×2 (04:15→04:45)
[2021-06-12] MEDS: *HR* Enoxaparin 40 MG/0.4 ML SYRINGE SQ SCH (06:26)
[2021-06-12] MEDS: Doxycycline 100 MG in 0.9 % Sodium Chloride Mini Bag 100 ML IVPB SCH (06:26)
[2021-06-12] MEDS: Gabapentin 300 MG CAPSULE PO SCH ×3 (08:08→20:41)
[2021-06-12] MEDS: Cholecalciferol (D-3) 1,000 UNIT (25MCG) TABLET PO SCH (08:08)
[2021-06-12] MEDS: Nicotine 7 MG PATCH.TD24 TD SCH (08:09)
[2021-06-12] MEDS: Insulin LISPRO 300 UNITS/3 ML VIAL SUBQ SCH ×3 (08:10→17:19)
[2021-06-12] MEDS: Fluconazole 200 MG/100 ML 200 MG/100 ML BAG IVPB SCH (08:13)
[2021-06-12] MEDS: 0.9 % Sodium Chloride 1,000 ML IVC SCH ×3 (08:21→16:03)
[2021-06-12 14:27] LABS: % Iron Saturation 10 % (20-55); Transferrin 186 mg/dL (200-400)
[2021-06-12 18:56] LABS: Uric Acid 3.7 mg/dL (2.3-7.6)
[2021-06-12 19:32] LABS: Hepatitis B Surface Antigen Nonreactive (Nonreactive)
[2021-06-12 20:01] LABS: Hepatitis B Core IgM Nonreactive (Nonreactive)
[2021-06-12 20:03] LABS: Hepatitis A Antibody IgM Nonreactive (Nonreactive)
[2021-06-12] MEDS: Insulin DETEMIR 100 UNIT/ML X5UNITS SUBQ SCH (20:46)
[2021-06-12 22:12] LABS: Hepatitis C Virus Antibody Reactive (Nonreactive)
[2021-06-13] MEDS: 0.9 % Sodium Chloride 1,000 ML IVC SCH ×3 (00:35→16:25)
[2021-06-13] MEDS: Piperacillin/Tazobactam 3.375 GM in 0.9 % Sodium Chloride Mini Bag 100 ML IVPB SCH ×3 (03:55→20:20)
[2021-06-13] MEDS: *HR* Enoxaparin 40 MG/0.4 ML SYRINGE SQ SCH (06:26)
[2021-06-13 07:16] LABS: Hematocrit 20.7 % (37.5-50.1); Immature Granulocytes % 0.4 % (0-4); Lymphocytes # 0.8 K/mcL (0.6-4.6); Lymphocytes % 10.6 %; Mean Corpuscular HGB Conc 32.9 g/dL (31.6-35.5); Mean Corpuscular Hemoglobin 33.5 pg (28.0-33.3); Mean Platelet Volume 9.6 fL (9.4-12.4); Monocytes # 0.4 K/mcL (0.0-1.3); Monocytes % 5.6 %; Neutrophils # 5.9 K/mcL (1.6-8.9); Platelet Count 143 K/mcL (140-400); Red Blood Count 2.03 M/mcL (4.19-5.50); Segmented Neutrophils % 83.4 %; White Blood Count 7.1 K/mcL (4.3-11.1)
[2021-06-13 07:17] LABS: Hemoglobin 6.8 g/dL (12.9-16.9)
[2021-06-13 07:38] LABS: BUN/Creatinine Ratio 19 (6-26); Blood Urea Nitrogen 26 mg/dL (6-20); Calcium 8.5 mg/dL (8.6-10.3); Carbon Dioxide 21 mEq/L (23-29); Chloride 99 mEq/L (98-107); Glucose 374 mg/dL (70-105); Osmolality,Calculated 288 (280-300); Potassium 4.2 mEq/L (3.5-5.1); Sodium 129 mEq/L (136-145); eGFR For African Americans > 60 (> 60); eGFR For Non-African Americans 54 (> 60)
[2021-06-13] MEDS: Cholecalciferol (D-3) 1,000 UNIT (25MCG) TABLET PO SCH (09:01)
[2021-06-13] MEDS: Gabapentin 300 MG CAPSULE PO SCH ×3 (09:01→20:19)
[2021-06-13] MEDS: Nicotine 7 MG PATCH.TD24 TD SCH (09:02)
[2021-06-13] MEDS: Insulin LISPRO 300 UNITS/3 ML VIAL SUBQ SCH ×3 (09:03→16:32)
[2021-06-13] MEDS: Fluconazole 200 MG/100 ML 200 MG/100 ML BAG IVPB SCH (12:05)
[2021-06-13 12:43] LABS: Hematocrit 21.2 % (37.5-50.1); Hemoglobin 7.1 g/dL (12.9-16.9)
[2021-06-13] MEDS: Insulin DETEMIR 100 UNIT/ML X5UNITS SUBQ SCH (20:26)
[2021-06-14] MEDS: 0.9 % Sodium Chloride 1,000 ML IVC SCH ×2 (01:50→09:16)
[2021-06-14 02:48] VITALS: O2SAT 100
[2021-06-14] MEDS: Piperacillin/Tazobactam 3.375 GM in 0.9 % Sodium Chloride Mini Bag 100 ML IVPB SCH ×2 (03:45→12:09)
[2021-06-14 05:35] LABS: Basophils % 0.2 %; Eosinophils % 0.6 %; Hematocrit 23.4 % (37.5-50.1); Hemoglobin 7.7 g/dL (12.9-16.9); Immature Granulocytes % 0.4 % (0-4); Lymphocytes # 0.8 K/mcL (0.6-4.6); Mean Corpuscular HGB Conc 32.9 g/dL (31.6-35.5); Mean Corpuscular Hemoglobin 33.9 pg (28.0-33.3); Mean Corpuscular Volume 103.1 fL (83.0-100.0); Mean Platelet Volume 9.6 fL (9.4-12.4); Monocytes # 0.4 K/mcL (0.0-1.3); Monocytes % 8.3 %; Neutrophils # 3.6 K/mcL (1.6-8.9); Platelet Count 156 K/mcL (140-400); Red Blood Count 2.27 M/mcL (4.19-5.50); Red Cell Distribution Width 13.2 % (11.5-14.5); Segmented Neutrophils % 73.5 %; White Blood Count 4.9 K/mcL (4.3-11.1)
[2021-06-14] MEDS: *HR* Enoxaparin 40 MG/0.4 ML SYRINGE SQ SCH (05:47)
[2021-06-14 05:51] LABS: BUN/Creatinine Ratio 18 (6-26); Blood Urea Nitrogen 23 mg/dL (6-20); Carbon Dioxide 22 mEq/L (23-29); Chloride 100 mEq/L (98-107); Glucose 252 mg/dL (70-105); Magnesium 1.2 mg/dL (1.6-2.6); Osmolality,Calculated 284 (280-300); Potassium 3.8 mEq/L (3.5-5.1); Sodium 131 mEq/L (136-145); eGFR For African Americans > 60 (> 60); eGFR For Non-African Americans 59 (> 60)
[2021-06-14 07:21] VITALS: BP 145/90; PULSE 56; TEMP 97.5
[2021-06-14] MEDS: Fluconazole 200 MG/100 ML 200 MG/100 ML BAG IVPB SCH (09:12)
[2021-06-14] MEDS: Insulin LISPRO 300 UNITS/3 ML VIAL SUBQ SCH ×2 (09:14→12:17)
[2021-06-14] MEDS: Cholecalciferol (D-3) 1,000 UNIT (25MCG) TABLET PO SCH (09:16)
[2021-06-14] MEDS: Nicotine 7 MG PATCH.TD24 TD SCH (09:16)
[2021-06-14] MEDS: Gabapentin 300 MG CAPSULE PO SCH (09:16)
== END 2021-06-14 14:28 | disposition home or self-care (01) | DRG 720 ==
LOC: 2NNU → SUATTDRO 09:27 → 3NENU 06-08 18:45
PROVIDERS: ADMIT Internal Medicine; ATTEND Internal Medicine